=== PATIENT | male | born 1945 | race Caucasian/White ===

== ENCOUNTER 2017-03-28 11:25 | Emergency (ER) | payer MEDICARE ==
[2017-03-28 11:38] VITALS: BP 125/76
[2017-03-28] MEDS ORDERED: OXYCODONE-ACETAMINOPHEN 5-325 MG TABLET PO ONE (11:50)
[2017-03-28] MEDS ORDERED: KETOROLAC TROMETHAMINE INJ/PF 30 MG/1 ML SDV IV ONE (11:50)
[2017-03-28] MEDS ORDERED: ONDANSETRON HCL INJ/PF 4 MG/2 ML SDV IV ONE (11:51)
--- NOTE | 2017-03-28 11:53 | ER Document Report ---
ED Medical Screen (RME) - General Chief Complaint: Back Pain Stated Complaint: BACK PAIN Time Seen by Provider: 03/28/17 11:49 Notes: Patient is complaining of severe pain in his left lower thoracic back region for the past couple of days. He recalls no injury and has never had this pain before. He has had kidney stones previously. Patient says he passed some blood in urine during this week and felt he may be having another kidney stone. Has not had a cough or cold or chest congestion or shortness of breath, just pain when he takes a deep breath. Low-grade fever of 99.8. No history of any heart disease. TRAVEL OUTSIDE OF THE [place] IN LAST 30 DAYS: No - Related Data Allergies/Adverse Reactions: No Known Allergies Allergy (Verified 03/28/17 11:35) Past Medical History - Social History Chew tobacco use (# tins/day): No Frequency of alcohol use: Social Drug Abuse: None Endocrine Medical History: Reports: Hx Diabetes Mellitus Type 2 - borderline Renal/ Medical History: Reports: Hx Kidney Stones. Denies: Hx Peritoneal Dialysis Musculoskeltal Medical History: Reports Hx Arthritis - gout Psychiatric Medical History: Reports: Hx Depression Past Surgical History: Reports: Hx Orthopedic Surgery - Anterior cervical fusion , Hx Tonsillectomy - Immunizations Hx Diphtheria, Pertussis, Tetanus Vaccination: Yes Physical Exam - Vital signs Vitals: Temp Pulse Resp BP Pulse Ox 98.3 F 108 H 18 125/76 94 03/28/17 11:36 03/28/17 11:36 03/28/17 11:36 03/28/17 11:36 03/28/17 11:36 Course - Vital Signs Vital signs: Temp Pulse Resp BP Pulse Ox 98.3 F 108 H 16 125/76 94 03/28/17 11:36 03/28/17 11:36 03/28/17 11:40 03/28/17 11:36 03/28/17 11:36
[2017-03-28 12:31] LABS: ABSOLUTE BASOPHILS # (AUTO) 0.1 10^3/uL (0.0-0.2); ABSOLUTE EOSINOPHILS # (AUTO) 0.4 10^3/uL (0.0-0.6); ABSOLUTE LYMPHOCYTES (AUTO) 1.1 10^3/uL (0.5-4.7); ABSOLUTE MONOCYTES (AUTO) 1.1 10^3/uL (0.1-1.4); ABSOLUTE NEUT (AUTO) 8.5 10^3/uL (1.7-8.2); BASOPHILS % (AUTO) 0.7 % (0-2); EOSINOPHILS % (AUTO) 3.4 % (0-6); HEMATOCRIT 55.3 % (37.9-51.0); HEMOGLOBIN 18.2 g/dL (13.5-17.0); HGB HCT DIFFERENCE -0.7; LYMPHOCYTES % (AUTO) 9.6 % (13-45); MEAN CORPUSCULAR HGB CONC 32.8 g/dL (32.0-36.0); MEAN CORPUSCULAR VOLUME 91 fl (80-97); RED BLOOD COUNT 6.05 10^6/uL (4.35-5.55); RED CELL DISTRIBUTION WIDTH 14.6 % (11.5-14.0); SEGMENTED NEUTROPHILS % (AUTO) 76.3 % (42-78); WHITE BLOOD COUNT 11.2 10^3/uL (4.0-10.5)
[2017-03-28 12:35] LABS: APPEARANCE,URINE SLIGHTLY-CLOUDY; BILIRUBIN,URINE NEGATIVE (NEGATIVE); GLUCOSE, URINE NEGATIVE (NEGATIVE); KETONES,URINE NEGATIVE (NEGATIVE); LEUKOCYTE ESTERASE,URINE SMALL (NEGATIVE); NITRITE,URINE NEGATIVE (NEGATIVE); PROTEIN,URINE 30 mg/dL (NEGATIVE); URINE SPECIFIC GRAVITY 1.011; UROBILINOGEN,URINE NEGATIVE mg/dL (<2.0)
[2017-03-28 12:55] LABS: ALANINE AMINOTRANSFERASE 20 U/L (21-72); ALBUMIN 4.7 g/dL (3.5-5.0); ALKALINE PHOSPHATASE 174 U/L (38-126); ANION GAP 16 (5-19); ASPARTATE AMINO TRANSFERASE 18 U/L (17-59); BILIRUBIN,DIRECT 0.3 mg/dL (0.0-0.4); BLOOD UREA NITROGEN 13 mg/dL (7-20); CALCIUM 9.8 mg/dL (8.4-10.2); CARBON DIOXIDE 24 mmol/L (22-30); CHLORIDE 104 mmol/L (98-107); CREATININE RESULT 1.09 mg/dL (0.52-1.25); GLUCOSE 108 mg/dL (75-110); LIPASE 197.3 U/L (23-300); POTASSIUM 4.7 mmol/L (3.6-5.0); SODIUM 143.9 mmol/L (137-145); TOTAL PROTEIN 7.9 g/dL (6.3-8.2)
--- NOTE | 2017-03-28 13:10 | RADIOLOGY REPORT (SQ) ---
EXAM DESCRIPTION: CT LTD RENAL STONE PROTOCOL ON COMPLETED DATE/TIME: 03/28/2017 12:44 pm REASON FOR STUDY: Severe left flank pain, blood in urine, HX stones COMPARISON: None. TECHNIQUE: CT scan of the abdomen and pelvis performed without intravenous or oral contrast. Images reviewed with lung, soft tissue, and bone windows. Reconstructed coronal and sagittal MPR images revi ewed. All images stored on PACS. All CT scanners at this facility use dose modulation, iterative reconstruction, and/or weight based d osing when appropriate to reduce radiation dose to as low as reasonably achievable (ALARA). [facility]: Dose Right [facility]: CareDose [facility]: Dose Right [facility]: Teradose 4D [facility]: [employer] RADIATION DOSE: 8.72mGy. LIMITATIONS: None. FINDINGS: LOWER CHEST: Patchy bibasilar ground-glass infiltrates, acuity indeterminate. Trace pleur al fluid. NON-CONTRASTED LIVER, SPLEEN, ADRENALS: Liver and spleen unremarkable. Calcification in the left adr enal gland. Adrenals otherwise normal. PANCREAS: No masses. No peripancreatic inflammatory changes. GALLBLADDER: At least 1 small calcified gallstone. Otherwise normal. RIGHT KIDNEY AND URETER: Several small nonobstructing stones. No hydronephrosis. No ureteral stones . No gross mass. LEFT KIDNEY AND URETER: Tiny nonobstructing stones. Small cysts. Minimal dilatation of the collecti ng system with slight dilatation throughout the ureter. This is due to a 3 mm stone lodged at the UV J. Mild regional stranding along the ureter and left lower retroperitoneum. 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 BOWEL AND PERITONEAL CAVITY: No obvious masses or inflammatory changes. No free fluid. APPENDIX: Projects to the right upper quadrant adjacent to the liver. Normal as assessed. PELVIS, BLADDER, AND ABDOMINAL WALL:As above. Unremarkable pelvis otherwise. No hernia. BONES: Bone island in the L4 vertebra. Spondylosis at L5-S1. OTHER: No other significant finding. IMPRESSION: 1. Mild left hydronephrosis due to a 3 mm left ureterovesicular junction stone. TECHNICAL DOCUMENTATION: JOB ID: [id number] Quality ID # [id number]: Final reports with documentation of one or more dose reduction techniques (e.g., Au tomated exposure control, adjustment of the mA and/or kV according to patient size, use of iterative reconstruction technique) 2011 [employer]- All Rights Reserved
[2017-03-28] MEDS ORDERED: TAMSULOSIN HCL 0.4 MG CAP.SR.24H PO ONE (13:21)
--- NOTE | 2017-03-28 13:23 | ER Document Report ---
ED GI/ - General Chief Complaint: Back Pain Stated Complaint: BACK PAIN Time Seen by Provider: 03/28/17 11:49 Mode of Arrival: Ambulatory Information source: Patient TRAVEL OUTSIDE OF THE [place] IN LAST 30 DAYS: No - HPI Patient complains to provider of: Flank pain, Hematuria Onset: Other - 2 days Timing/Duration: Intermittent Quality of pain: Sharp, Stabbing Severity at maximum: Severe Severity in ED: Moderate Location: Left flank Associated symptoms: Hematuria, Nausea Exacerbated by: Denies Relieved by: Denies Similar symptoms previously: Yes Recently seen / treated by doctor: No Notes: 03/28/17 13:40 Patient is a 71-year-old male who presents to the emergency room complaining of 2 day history of left flank pain with hematuria, as well as nausea, no fevers, no vomiting, no diarrhea, no sick contacts, has a history of kidney stones in the past, states it hurts when he takes a deep breath at time - Related Data Allergies/Adverse Reactions: No Known Allergies Allergy (Verified 03/28/17 11:35) Past Medical History - General Information source: Patient - Social History Smoking Status: Current Every Day Smoker Chew tobacco use (# tins/day): No Frequency of alcohol use: Social Drug Abuse: None Family History: Reviewed & Not Pertinent Patient has suicidal ideation: No Patient has homicidal ideation: No Endocrine Medical History: Reports: Hx Diabetes Mellitus Type 2 - borderline Renal/ Medical History: Reports: Hx Kidney Stones. Denies: Hx Peritoneal Dialysis Musculoskeltal Medical History: Reports Hx Arthritis - gout Psychiatric Medical History: Reports: Hx Depression Past Surgical History: Reports: Hx Orthopedic Surgery - Anterior cervical fusion , Hx Tonsillectomy - Immunizations Hx Diphtheria, Pertussis, Tetanus Vaccination: Yes Hx Pneumococcal Vaccination: 07/10/10 Review of Systems - Review of Systems Constitutional: No symptoms reported EENT: No symptoms reported Cardiovascular: No symptoms reported Respiratory: No symptoms reported Gastrointestinal: No symptoms reported Genitourinary: See HPI Male Genitourinary: No symptoms reported Musculoskeletal: No symptoms reported Skin: No symptoms reported Hematologic/Lymphatic: No symptoms reported Neurological/Psychological: No symptoms reported -: Yes All other systems reviewed and negative Physical Exam - Vital signs Vitals: Temp Pulse Resp BP Pulse Ox 98.3 F 108 H 18 125/76 94 03/28/17 11:36 03/28/17 11:36 03/28/17 11:36 03/28/17 11:36 03/28/17 11:36 Interpretation: Normal - General General appearance: Appears well, Alert - HEENT Head: Normocephalic, Atraumatic Eyes: Normal Pupils: PERRL - Respiratory Respiratory status: No respiratory distress Chest status: Nontender Breath sounds: Normal Chest palpation: Normal - Cardiovascular Rhythm: Regular Heart sounds: Normal auscultation Murmur: No - Abdominal Inspection: Normal Distension: No distension Bowel sounds: Normal Tenderness: Nontender Organomegaly: No organomegaly - Back Back: Normal, CVA tenderness - Left side - Extremities General upper extremity: Normal inspection, Nontender, Normal color, Normal ROM , Normal temperature General lower extremity: Normal inspection, Nontender, Normal color, Normal ROM , Normal temperature, Normal weight bearing. No: John's sign - Neurological Neuro grossly intact: Yes Cognition: Normal Orientation: AAOx4 Janice Coma Scale Eye Opening: Spontaneous [place] Coma Scale Verbal: Oriented [place] Coma Scale Motor: Obeys Commands Janice Coma Scale Total: 15 Speech: Normal Motor strength normal: LUE, RUE, LLE, RLE Sensory: Normal - Psychological Associated symptoms: Normal affect, Normal mood - Skin Skin Temperature: Warm Skin Moisture: Dry Skin Color: Normal Course - Re-evaluation Re-evalutation: 03/28/17 13:41 Patient symptoms are consistent with nephrolithiasis, CT scan confirms a 3 mm stone at the left UVJ, he was started on medications for this as well as antibiotics his urine had WBCs and leukocyte esterase, advised to follow-up with a primary care provider or urologist or return to the emergency room if symptoms worsen, patient and at bedside acknowledge understanding and agreement with this plan - Vital Signs Vital signs: Temp Pulse Resp BP Pulse Ox 98.3 F 108 H 16 125/76 94 03/28/17 11:36 03/28/17 11:36 03/28/17 11:40 03/28/17 11:36 03/28/17 11:36 - Laboratory Result Diagrams: 03/28/17 12:10 03/28/17 12:10 Laboratory results interpreted by me: 03/28/17 03/28/17 03/28/17 12:10 12:10 12:10 WBC 11.2 H RBC 6.05 H Hgb 18.2 H Hct 55.3 H RDW 14.6 H Lymphocytes % 9.6 L Absolute Neutrophils 8.5 H ALT 20 L Alkaline Phosphatase 174 H Urine Protein 30 H Urine Blood MODERATE H Ur Leukocyte Esterase SMALL H Discharge - Discharge Clinical Impression: Ureterolithiasis Condition: Stable Disposition: HOME, SELF-CARE Instructions: Oral Narcotic Medication ([facility]), Kidney Stone ([facility]) Additional Instructions: Follow up with your primary care provider in one to 2 days. Return to the emergency room immediately if symptoms worsen or any additional concerns. Prescriptions: Cephalexin Monohydrate [Keflex 500 mg Capsule] 500 mg PO BID #20 capsule Ondansetron [Zofran Odt 4 mg Tablet] 1 - 2 tab PO Q4H #10 tab.rapdis Oxycodone HCl/Acetaminophen [Percocet 5-325 mg Tablet] 1 - 2 tab PO ASDIR PRN # 15 tablet PRN Reason: Tamsulosin HCl [Flomax 0.4 mg Cap.sr] 0.4 mg PO DAILY #7 cap.sr.24h
== END 2017-03-28 13:45 | disposition home or self-care (01) ==
LOC: ER 11:25
DX: N20.1 Calculus of ureter (principal); R10.9 Unspecified abdominal pain; R31.9 Hematuria, unspecified; F17.200 Nicotine dependence, unspecified, uncomplicated; E11.9 Type 2 diabetes mellitus without complications; Z87.442 Personal history of urinary calculi; Z98.1 Arthrodesis status
CPT/HCPCS: 99284; 96374; 96375; 36415; 83690; 85025; 80053; 81001; 76380; J1885; A9270 ×2; J2405

== ENCOUNTER 2017-03-31 11:00 | Emergency (ER) | payer MEDICARE ==
--- NOTE | 2017-03-31 11:23 | ER Document Report ---
ED Medical Screen (RME) - General Chief Complaint: Flank Pain Stated Complaint: LEFT FLANK PAIN Time Seen by Provider: 03/31/17 11:16 Notes: Patient is a 71-year-old male who presents with worsening left flank pain. He was diagnosed with a 3 mm stone 3 days ago. He is taking Percocet, Flomax and Keflex, but he is still having worsening pain. He has not filled his Zofran prescription because he is not nauseous. Today, began to have a cough and noticed a small amount of blood-tinged sputum. Denies numbness, tingling, dysuria, chest pain, shortness of breath, nausea or vomiting. PE: Uncomfortable. No CVA tenderness. Lungs CTAB. Tachycardic. I have greeted and performed a rapid initial assessment of this patient. A comprehensive ED assessment and evaluation of the patient, analysis of test results and completion of the medical decision making process will be conducted by additional ED providers. TRAVEL OUTSIDE OF THE [place] IN LAST 30 DAYS: No - Related Data Allergies/Adverse Reactions: No Known Allergies Allergy (Verified 03/28/17 11:35) Past Medical History Endocrine Medical History: Reports: Hx Diabetes Mellitus Type 2 - borderline Renal/ Medical History: Reports: Hx Kidney Stones. Denies: Hx Peritoneal Dialysis Musculoskeltal Medical History: Reports Hx Arthritis - gout Psychiatric Medical History: Reports: Hx Depression Past Surgical History: Reports: Hx Orthopedic Surgery - Anterior cervical fusion , Hx Tonsillectomy - Immunizations Hx Diphtheria, Pertussis, Tetanus Vaccination: Yes Physical Exam - Vital signs Vitals: Temp Pulse Resp BP Pulse Ox 97.8 F 103 H 16 141/84 H 95 03/31/17 11:03/31/17 11:04 03/31/17 11:03/31/17 11:04 03/31/17 11:04 Course - Vital Signs Vital signs: Temp Pulse Resp BP Pulse Ox 97.8 F 103 H 16 141/84 H 95 03/31/17 11:04 03/31/17 11:04 03/31/17 11:04 03/31/17 11:04 03/31/17 11:04
[2017-03-31] MEDS ORDERED: NAPROXEN 250 MG TABLET PO ONE (11:24)
[2017-03-31] MEDS ORDERED: OXYCODONE-ACETAMINOPHEN 5-325 MG TABLET PO ONE (11:24)
[2017-03-31 12:02] LABS: ABSOLUTE BASOPHILS # (AUTO) 0.1 10^3/uL (0.0-0.2); ABSOLUTE EOSINOPHILS # (AUTO) 0.4 10^3/uL (0.0-0.6); ABSOLUTE LYMPHOCYTES (AUTO) 1.3 10^3/uL (0.5-4.7); ABSOLUTE MONOCYTES (AUTO) 0.7 10^3/uL (0.1-1.4); BASOPHILS % (AUTO) 0.8 % (0-2); EOSINOPHILS % (AUTO) 5.2 % (0-6); HEMATOCRIT 53.1 % (37.9-51.0); HEMOGLOBIN 17.6 g/dL (13.5-17.0); HGB HCT DIFFERENCE -0.3; LYMPHOCYTES % (AUTO) 15.1 % (13-45); MEAN CORPUSCULAR HEMOGLOBIN 30.3 pg (27.0-33.4); MEAN CORPUSCULAR HGB CONC 33.1 g/dL (32.0-36.0); MEAN CORPUSCULAR VOLUME 92 fl (80-97); MONOCYTES % (AUTO) 8.2 % (3-13); RED CELL DISTRIBUTION WIDTH 14.3 % (11.5-14.0); SEGMENTED NEUTROPHILS % (AUTO) 70.7 % (42-78); WHITE BLOOD COUNT 8.5 10^3/uL (4.0-10.5)
--- NOTE | 2017-03-31 12:03 | RADIOLOGY REPORT (SQ) ---
EXAM DESCRIPTION: CHEST PA/LAT COMPLETED DATE/TIME: 03/31/2017 11:45 am REASON FOR STUDY: cough COMPARISON: 03/10/2016. TECHNIQUE: Frontal and lateral radiographic views of the chest acquired. NUMBER OF VIEWS: Two view. LIMITATIONS: None. FINDINGS: LUNGS AND PLEURA: Bibasilar opacities, largely linear subsegmental atelectasis. Lateral v iew suggests minimal density over the lower thoracic spine suggesting pneumonia in 1 of the lower lob es. No fluid. No pneumothorax. No nodules. MEDIASTINUM AND HILAR STRUCTURES: Stable. Uncoiled aorta. HEART AND VASCULAR STRUCTURES: Heart normal size. No evidence for failure. BONES: No acute findings. HARDWARE: None in the chest. OTHER: No other significant finding. IMPRESSION: Suspect basilar subsegmental atelectasis and pneumonia. TECHNICAL DOCUMENTATION: JOB ID: [id number] [employer]- All Rights Reserved
[2017-03-31 12:06] LABS: ALANINE AMINOTRANSFERASE 25 U/L (21-72); ALBUMIN 4.6 g/dL (3.5-5.0); ALKALINE PHOSPHATASE 151 U/L (38-126); ANION GAP 15 (5-19); ASPARTATE AMINO TRANSFERASE 16 U/L (17-59); BILIRUBIN,DIRECT 0.4 mg/dL (0.0-0.4); BILIRUBIN,TOTAL 0.7 mg/dL (0.2-1.3); BLOOD UREA NITROGEN 15 mg/dL (7-20); CALCIUM 9.8 mg/dL (8.4-10.2); CARBON DIOXIDE 28 mmol/L (22-30); CHLORIDE 103 mmol/L (98-107); CREATININE RESULT 1.03 mg/dL (0.52-1.25); GLUCOSE 106 mg/dL (75-110); LIPASE 111.9 U/L (23-300); POTASSIUM 4.3 mmol/L (3.6-5.0); SODIUM 145.5 mmol/L (137-145); TOTAL PROTEIN 7.9 g/dL (6.3-8.2)
[2017-03-31 12:11] LABS: APPEARANCE,URINE CLEAR; BILIRUBIN,URINE NEGATIVE (NEGATIVE); GLUCOSE, URINE NEGATIVE (NEGATIVE); KETONES,URINE NEGATIVE (NEGATIVE); LEUKOCYTE ESTERASE,URINE NEGATIVE (NEGATIVE); NITRITE,URINE NEGATIVE (NEGATIVE); PROTEIN,URINE NEGATIVE (NEGATIVE); URINE SPECIFIC GRAVITY 1.014; UROBILINOGEN,URINE NEGATIVE mg/dL (<2.0)
[2017-03-31] MEDS ORDERED: CEFTRIAXONE INJ 1000 MG VIAL IM ONE (13:11)
[2017-03-31] MEDS ORDERED: LIDOCAINE 1% INJ-PF (10 MG/ML) 30 ML SDV INFIL ONE (13:11)
[2017-03-31] MEDS ORDERED: AZITHROMYCIN 250 MG TABLET PO ONE (13:12)
--- NOTE | 2017-03-31 13:22 | ER Document Report ---
ED General - General Chief Complaint: Flank Pain Stated Complaint: LEFT FLANK PAIN Time Seen by Provider: 03/31/17 11:16 TRAVEL OUTSIDE OF THE [place] IN LAST 30 DAYS: No - HPI Patient complains to provider of: Flank pain Notes: Patient coming in for evaluation left flank pain. States ongoing for the last few days patient was recently diagnosed with a kidney stone. Patient states history of kidney stones patient also states that he is having some streaks of blood in his sputum. Denies any fevers chills nausea vomiting diarrhea patient is unaware if he has passed his recent kidney stone. Patient states pain similar to before - Related Data Allergies/Adverse Reactions: No Known Allergies Allergy (Verified 03/28/17 11:35) Past Medical History - Social History Smoking Status: Unknown if Ever Smoked Family History: Reviewed & Not Pertinent Patient has suicidal ideation: No Patient has homicidal ideation: No Endocrine Medical History: Reports: Hx Diabetes Mellitus Type 2 - borderline Renal/ Medical History: Reports: Hx Kidney Stones. Denies: Hx Peritoneal Dialysis Musculoskeltal Medical History: Reports Hx Arthritis - gout Psychiatric Medical History: Reports: Hx Depression Past Surgical History: Reports: Hx Orthopedic Surgery - Anterior cervical fusion , Hx Tonsillectomy - Immunizations Hx Diphtheria, Pertussis, Tetanus Vaccination: Yes Hx Pneumococcal Vaccination: 07/10/10 Review of Systems - Review of Systems Constitutional: No symptoms reported EENT: No symptoms reported Cardiovascular: No symptoms reported Respiratory: Cough Gastrointestinal: No symptoms reported Genitourinary: Flank pain Male Genitourinary: No symptoms reported Musculoskeletal: No symptoms reported Skin: No symptoms reported Hematologic/Lymphatic: No symptoms reported Neurological/Psychological: No symptoms reported Physical Exam - Vital signs Vitals: Temp Pulse Resp BP Pulse Ox 97.8 F 103 H 16 141/84 H 95 03/31/17 11:04 03/31/17 11:04 03/31/17 11:04 03/31/17 11:04 03/31/17 11:04 Interpretation: Normal - General General appearance: Appears well, Alert - HEENT Head: Normocephalic, Atraumatic Eyes: Normal Pupils: PERRL - Respiratory Respiratory status: No respiratory distress Chest status: Nontender Breath sounds: Normal Chest palpation: Normal - Cardiovascular Rhythm: Regular Heart sounds: Normal auscultation Murmur: No - Abdominal Inspection: Normal Distension: No distension Bowel sounds: Normal Tenderness: Nontender Organomegaly: No organomegaly - Back Back: Normal, Nontender - Extremities General upper extremity: Normal inspection, Nontender, Normal color, Normal ROM , Normal temperature General lower extremity: Normal inspection, Nontender, Normal color, Normal ROM , Normal temperature, Normal weight bearing. No: John's sign - Neurological Neuro grossly intact: Yes Cognition: Normal Orientation: AAOx4 [place] Coma Scale Eye Opening: Spontaneous [place] Coma Scale Verbal: Oriented Janice Coma Scale Motor: Obeys Commands Janice Coma Scale Total: 15 Speech: Normal Motor strength normal: LUE, RUE, LLE, RLE Sensory: Normal - Psychological Associated symptoms: Normal affect, Normal mood - Skin Skin Temperature: Warm Skin Moisture: Dry Skin Color: Normal Course - Re-evaluation Re-evalutation: 03/31/17 15:22 Chest x-ray showed a developing pneumonia which was actually seen in the patient 's renal scan however was not placed in the impression: Patient was seen 4 days ago for a kidney stone. Patient is on Keflex. Patient will be given a dose of Rocephin and sent home on azithromycin that is noted on signs of respiratory distress at this time no fever no signs of septicemia. Patient is urinalysis does show some signs of blood recommended possible repeat CAT scan for further evaluation patient declines states that he would leave this time after receiving antibiotics follow-up with his primary care physician. - Vital Signs Vital signs: Temp Pulse Resp BP Pulse Ox 97.8 F 80 18 122/88 H 100 03/31/17 13:46 03/31/17 13:46 03/31/17 13:46 03/31/17 13:46 03/31/17 13:46 - Laboratory Result Diagrams: 03/31/17 11:35 03/31/17 11:35 Laboratory results interpreted by me: 03/31/17 03/31/17 03/31/17 11:35 11:35 11:35 RBC 5.80 H Hgb 17.6 H Hct 53.1 H RDW 14.3 H Sodium 145.5 H AST 16 L Alkaline Phosphatase 151 H Urine Blood SMALL H Discharge - Discharge Clinical Impression: Ureterolithiasis Pneumonia Qualifiers: Aspiration pneumonia type: unspecified Laterality: left Lung location: lower lobe of lung Condition: Good Disposition: HOME, SELF-CARE Instructions: Pneumonia ([facility]), Kidney Stone ([facility]) Additional Instructions: Your chest x-ray today shows a pneumonia in the lower lobes of your lungs more likely causing her pain today. We will give you a shot of antibiotic Rocephin and start you on antibiotic on Zithromax. Continue to take your Flomax your pain medication nausea medication as previously prescribed please follow-up with your doctor tomorrow. Prescriptions: Ondansetron [Zofran Odt 4 mg Tablet] 4 mg PO Q4HP PRN #30 tab.rapdis PRN Reason: Azithromycin [Zithromax 250 mg Tablet] 250 mg PO DAILY #5 tablet Oxycodone HCl/Acetaminophen [Percocet 5-325 mg Tablet] 1 - 2 tab PO Q4H PRN #25 tablet PRN Reason: Tamsulosin HCl [Flomax 0.4 mg Cap.sr] 0.4 mg PO DAILY #7 cap.sr.24h Referrals: KING CEE MD [Primary Care Provider] - Follow up as needed
[2017-03-31 13:47] VITALS: BP 122/88
== END 2017-03-31 13:50 | disposition home or self-care (01) ==
LOC: ER 11:00
DX: N20.1 Calculus of ureter (principal); J18.9 Pneumonia, unspecified organism; R04.2 Hemoptysis
CPT/HCPCS: 99284; 96372; 36415; 83690; 85025; 80053; 81001; 71020; A9270 ×3; J3490; J0696

== ENCOUNTER 2017-04-10 15:31 | Emergency (ER) | payer MEDICARE ==
--- NOTE | 2017-04-10 15:48 | ER Document Report ---
ED Medical Screen (RME) - General Chief Complaint: Cough Stated Complaint: FLANK PAIN, DIFFICULTY BREATHING Time Seen by Provider: 04/10/17 15:44 Mode of Arrival: Ambulatory Information source: Patient TRAVEL OUTSIDE OF THE [place] IN LAST 30 DAYS: No - HPI Patient complains to provider of: cough/bloody sputum Onset: Other - Pt states he recently passed 3 kidney stones -- feels better now. Has been coughing up blood for the past several days. Smokes 1/2 ppd - Related Data Allergies/Adverse Reactions: No Known Allergies Allergy (Verified 03/28/17 11:35) Past Medical History Endocrine Medical History: Reports: Hx Diabetes Mellitus Type 2 - borderline Renal/ Medical History: Reports: Hx Kidney Stones. Denies: Hx Peritoneal Dialysis Musculoskeltal Medical History: Reports Hx Arthritis - gout Psychiatric Medical History: Reports: Hx Depression Past Surgical History: Reports: Hx Orthopedic Surgery - Anterior cervical fusion , Hx Tonsillectomy - Immunizations Hx Diphtheria, Pertussis, Tetanus Vaccination: Yes Physical Exam - Vital signs Vitals: Temp Pulse Resp BP Pulse Ox 98.1 F 103 H 18 117/91 H 97 04/10/17 15:36 04/10/17 15:36 04/10/17 15:36 04/10/17 15:36 04/10/17 15:36 Course - Vital Signs Vital signs: Temp Pulse Resp BP Pulse Ox 98.1 F 103 H 18 117/91 H 97 04/10/17 15:36 04/10/17 15:36 04/10/17 15:36 04/10/17 15:36 04/10/17 15:36
[2017-04-10 16:17] LABS: ABSOLUTE BASOPHILS # (AUTO) 0.1 10^3/uL (0.0-0.2); ABSOLUTE EOSINOPHILS # (AUTO) 0.6 10^3/uL (0.0-0.6); ABSOLUTE MONOCYTES (AUTO) 0.8 10^3/uL (0.1-1.4); BASOPHILS % (AUTO) 1.2 % (0-2); EOSINOPHILS % (AUTO) 6.7 % (0-6); HEMATOCRIT 53.3 % (37.9-51.0); HEMOGLOBIN 16.9 g/dL (13.5-17.0); HGB HCT DIFFERENCE -2.6; LYMPHOCYTES % (AUTO) 23.8 % (13-45); MEAN CORPUSCULAR HEMOGLOBIN 29.1 pg (27.0-33.4); MEAN CORPUSCULAR HGB CONC 31.6 g/dL (32.0-36.0); MEAN CORPUSCULAR VOLUME 92 fl (80-97); MONOCYTES % (AUTO) 9.5 % (3-13); RED CELL DISTRIBUTION WIDTH 14.6 % (11.5-14.0); SEGMENTED NEUTROPHILS % (AUTO) 58.8 % (42-78); WHITE BLOOD COUNT 8.5 10^3/uL (4.0-10.5)
--- NOTE | 2017-04-10 16:21 | RADIOLOGY REPORT (SQ) ---
EXAM DESCRIPTION: CHEST PA/LAT COMPLETED DATE/TIME: 04/10/2017 4:02 pm REASON FOR STUDY: hemoptysis COMPARISON: 03/31/2017 EXAM PARAMETERS: NUMBER OF VIEWS: two views TECHNIQUE: Digital Frontal and Lateral radiographic views of the chest acquired. RADIATION DOSE: NA LIMITATIONS: none FINDINGS: LUNGS AND PLEURA: No opacities, masses or pneumothorax. No pleural effusion. MEDIASTINUM AND HILAR STRUCTURES: No masses or contour abnormalities. HEART AND VASCULAR STRUCTURES: Heart normal size. No evidence for failure. BONES: No acute findings. HARDWARE: None in the chest. OTHER: No other significant finding. IMPRESSION: NO SIGNIFICANT RADIOGRAPHIC FINDING IN THE CHEST. TECHNICAL DOCUMENTATION: JOB ID: [id number] [employer]- All Rights Reserved
[2017-04-10 16:25] LABS: APPEARANCE,URINE CLEAR; BILIRUBIN,URINE NEGATIVE (NEGATIVE); GLUCOSE, URINE NEGATIVE (NEGATIVE); KETONES,URINE NEGATIVE (NEGATIVE); LEUKOCYTE ESTERASE,URINE SMALL (NEGATIVE); NITRITE,URINE NEGATIVE (NEGATIVE); PROTEIN,URINE NEGATIVE (NEGATIVE); URINE SPECIFIC GRAVITY 1.016; UROBILINOGEN,URINE NEGATIVE mg/dL (<2.0)
[2017-04-10 16:28] LABS: ALANINE AMINOTRANSFERASE 42 U/L (21-72); ALBUMIN 4.6 g/dL (3.5-5.0); ALKALINE PHOSPHATASE 164 U/L (38-126); ANION GAP 14 (5-19); ASPARTATE AMINO TRANSFERASE 17 U/L (17-59); BILIRUBIN,DIRECT 0.4 mg/dL (0.0-0.4); BILIRUBIN,TOTAL 0.6 mg/dL (0.2-1.3); BLOOD UREA NITROGEN 20 mg/dL (7-20); CALCIUM 9.4 mg/dL (8.4-10.2); CARBON DIOXIDE 25 mmol/L (22-30); CHLORIDE 105 mmol/L (98-107); CREATININE RESULT 1.02 mg/dL (0.52-1.25); GLUCOSE 84 mg/dL (75-110); POTASSIUM 4.8 mmol/L (3.6-5.0); SODIUM 144.3 mmol/L (137-145); TOTAL PROTEIN 7.6 g/dL (6.3-8.2)
--- NOTE | 2017-04-10 17:19 | ER Document Report ---
ED GI/ - General Chief Complaint: Cough Stated Complaint: FLANK PAIN, DIFFICULTY BREATHING Time Seen by Provider: 04/10/17 15:44 Mode of Arrival: Ambulatory Information source: Patient Notes: Patient is a 71-year-old male who presents to the ER today4 coughing up streaks of blood after recovering from pneumonia. Patient does smoke half a pack per day of cigarettes. He states that he is no longer having any pain, and the cough is still there though and he only coughs up small streaks of blood occasionally. He has never done this before, has not been out of the country. He denies any fevers or chills. States that the pneumonia actually got much better. TRAVEL OUTSIDE OF THE [place] IN LAST 30 DAYS: No - Related Data Allergies/Adverse Reactions: No Known Allergies Allergy (Verified 03/28/17 11:35) Past Medical History - General Information source: Patient - Social History Smoking Status: Current Every Day Smoker Chew tobacco use (# tins/day): No Frequency of alcohol use: Social Drug Abuse: None Family History: Reviewed & Not Pertinent Patient has suicidal ideation: No Patient has homicidal ideation: No Endocrine Medical History: Reports: Hx Diabetes Mellitus Type 2 - borderline Renal/ Medical History: Reports: Hx Kidney Stones. Denies: Hx Peritoneal Dialysis Musculoskeltal Medical History: Reports Hx Arthritis - gout Psychiatric Medical History: Reports: Hx Depression Past Surgical History: Reports: Hx Orthopedic Surgery - Anterior cervical fusion , Hx Tonsillectomy - Immunizations Hx Diphtheria, Pertussis, Tetanus Vaccination: Yes Hx Pneumococcal Vaccination: 07/10/10 Review of Systems - Review of Systems Constitutional: No symptoms reported EENT: No symptoms reported Cardiovascular: No symptoms reported Respiratory: See HPI Gastrointestinal: No symptoms reported Genitourinary: No symptoms reported Male Genitourinary: No symptoms reported Musculoskeletal: No symptoms reported Skin: No symptoms reported Hematologic/Lymphatic: No symptoms reported Neurological/Psychological: No symptoms reported Physical Exam - Vital signs Vitals: Temp Pulse Resp BP Pulse Ox 98.1 F 103 H 18 117/91 H 97 04/10/17 15:36 04/10/17 15:36 04/10/17 15:36 04/10/17 15:36 04/10/17 15:36 - Notes Notes: PHYSICAL EXAMINATION: GENERAL: Well-appearing and in no acute distress. HEAD: Atraumatic, normocephalic. EYES: Pupils equal round and reactive to light, extraocular movements intact, sclera anicteric, conjunctiva are normal. ENT: ear canals without erythema or foreign body, TMs pearly fernandez with good bony landmarks, nares patent, oropharynx clear without exudates. Moist mucous membranes. NECK: Normal range of motion, supple without lymphadenopathy LUNGS: Cough, otherwise CTAB and equal. No wheezes rales or rhonchi. HEART: Regular rate and rhythm without murmurs ABDOMEN: Soft, no tenderness. No guarding, no rebound BACK: no vertebral tenderness, normal ROM GI/: no CVA tenderness EXTREMITIES: Normal range of motion, no pitting edema. No cyanosis. NEUROLOGICAL: Cranial nerves grossly intact. Normal sensory/motor exams. PSYCH: Normal mood, normal affect. SKIN: Warm, Dry, normal turgor, no rashes or lesions noted Course - Re-evaluation Re-evalutation: 04/10/17 17:18 Chest x-ray normal today without any evidence of pneumonia or any opacities at all, lab work unremarkable today. Patient will go home with cough medication. I did not see streaks of blood when he coughs today. - Vital Signs Vital signs: Temp Pulse Resp BP Pulse Ox 98.1 F 103 H 18 117/91 H 97 04/10/17 15:36 04/10/17 15:36 04/10/17 15:36 04/10/17 15:36 04/10/17 15:36 - Laboratory Result Diagrams: 04/10/17 15:55 04/10/17 15:55 Laboratory results interpreted by me: 04/10/17 04/10/17 04/10/17 15:50 15:55 15:55 RBC 5.80 H Hct 53.3 H MCHC 31.6 L RDW 14.6 H Eosinophils % 6.7 H Alkaline Phosphatase 164 H Ur Leukocyte Esterase SMALL H Discharge - Discharge Clinical Impression: Cough Condition: Stable Disposition: HOME, SELF-CARE Additional Instructions: Return immediately for any new or worsening symptoms. Follow up with primary care provider, call tomorrow to make followup appointment. Prescriptions: Hydrocodone Bit/Homatropine [Hycodan Syrup 5-1.5 mg/5 ml Ud Cup] 5 ml PO Q4HP PRN #120 ml PRN Reason:
[2017-04-10 17:33] VITALS: BP 117/79
== END 2017-04-10 17:34 | disposition home or self-care (01) ==
LOC: ER 15:31
DX: R05 Cough (principal); R06.00 Dyspnea, unspecified; F17.200 Nicotine dependence, unspecified, uncomplicated; R73.03 Prediabetes; Z87.442 Personal history of urinary calculi; Z98.1 Arthrodesis status
CPT/HCPCS: 36415; 71020; 80053; 81001; 85025; 99284

== ENCOUNTER 2017-08-07 06:38 | Observation (INO) | payer MEDICARE ==
[2017-08-07] MEDS ORDERED: NORMAL SALINE 1000 ML 1,000 ML IV ONE (07:31)
[2017-08-07] MEDS ORDERED: NORMAL SALINE 500 ML IV ONE (07:31)
--- NOTE | 2017-08-07 07:38 | ER Document Report ---
ED General - General Chief Complaint: Productive Cough Stated Complaint: COUGHING UP BLOOD Time Seen by Provider: 08/07/17 07:16 TRAVEL OUTSIDE OF THE [place] IN LAST 30 DAYS: No - HPI Patient complains to provider of: Hemoptysis Notes: Patient coming in for approximately 10 day history of hemoptysis. Patient was recently seen with chest x-ray performed showing no signs of any acute pathology was diagnosed with pneumonia started on Z-Reed. Patient states has taken all his medication however no improvement of his symptoms. Patient does have significant smoking history. Patient also states in the last few weeks has lost approximately 10 pounds. Otherwise denies any fevers states night sweats and chills no chest pain no abdominal pain no nausea no vomiting - Related Data Allergies/Adverse Reactions: No Known Allergies Allergy (Verified 03/28/17 11:35) Home Medications: Current Home Medications Allopurinol [Zyloprim 100 mg Tablet] 100 mg PO DAILY 08/07/17 [History] Aspirin [Aspirin EC] 81 mg PO DAILY 08/07/17 [History] Colchicine [Colchicine 0.6 mg Tablet] 0.6 mg PO DAILYP PRN 08/07/17 [History] Gemfibrozil [Lopid] 1,200 mg PO DAILY 08/07/17 [History] Ipratropium [place] [Atrovent Hfa] 1 puff IH Q6HP PRN 08/07/17 [History] Levothyroxine Sodium [Synthroid 0.075 mg Tablet] 75 mcg PO DAILY 08/07/17 [ History] Metformin HCl [Metformin HCl ER] 1,000 mg PO DAILY 08/07/17 [History] Multivitamin [Daily Multiple Vitamin] 1 tab PO DAILY 08/07/17 [History] [place]-3 Fatty Acids/Fish Oil [Fish Oil 1,000 mg Capsule] 2,000 mg PO DAILY 08/07 [History] Oxycodone HCl/Acetaminophen [Oxycodon-Acetaminophen 7.5-325] 1 tab PO Q8HP PRN 08/07/17 [History] Potassium Citrate Cr Tablet 2,160 mg PO DAILY 08/07/17 [History] Sertraline HCl [Zoloft 50 mg Tablet] 100 mg PO DAILY 08/07/17 [History] Triamcinolone Acetonide [Triderm] 1 applic TOP QIDP PRN 08/07/17 [History] Past Medical History - Social History Smoking Status: Unknown if Ever Smoked Family History: Reviewed & Not Pertinent Patient has suicidal ideation: No Patient has homicidal ideation: No Pulmonary Medical History: Reports: Hx Asthma Endocrine Medical History: Reports: Hx Diabetes Mellitus Type 2 - borderline Renal/ Medical History: Reports: Hx Kidney Stones. Denies: Hx Peritoneal Dialysis Musculoskeltal Medical History: Reports Hx Arthritis - gout, Reports Hx Gout Psychiatric Medical History: Reports: Hx Depression Past Surgical History: Reports: Hx Orthopedic Surgery - Anterior cervical fusion , Hx Tonsillectomy - Immunizations Hx Diphtheria, Pertussis, Tetanus Vaccination: Yes Hx Pneumococcal Vaccination: 07/10/10 Review of Systems - Review of Systems Constitutional: No symptoms reported EENT: No symptoms reported Cardiovascular: No symptoms reported Respiratory: Hemoptysis, Short of breath Gastrointestinal: No symptoms reported Genitourinary: No symptoms reported Male Genitourinary: No symptoms reported Musculoskeletal: No symptoms reported Skin: No symptoms reported Hematologic/Lymphatic: No symptoms reported Neurological/Psychological: No symptoms reported -: Yes All other systems reviewed and negative Physical Exam - Vital signs Vitals: Temp Pulse BP Pulse Ox 98.8 F 100 142/83 H 97 08/07/17 06:47 08/07/17 06:47 08/07/17 06:47 08/07/17 06:47 Interpretation: Normal - General General appearance: Appears well, Alert - HEENT Head: Normocephalic, Atraumatic Eyes: Normal Pupils: PERRL - Respiratory Respiratory status: No respiratory distress Chest status: Nontender Breath sounds: Normal Chest palpation: Normal - Cardiovascular Rhythm: Regular Heart sounds: Normal auscultation Murmur: No - Abdominal Inspection: Normal Distension: No distension Bowel sounds: Normal Tenderness: Nontender Organomegaly: No organomegaly - Back Back: Normal, Nontender - Extremities General upper extremity: Normal inspection, Nontender, Normal color, Normal ROM , Normal temperature General lower extremity: Normal inspection, Nontender, Normal color, Normal ROM , Normal temperature, Normal weight bearing. No: John's sign - Neurological Neuro grossly intact: Yes Cognition: Normal Orientation: AAOx4 Caro Coma Scale Eye Opening: Spontaneous Janice Coma Scale Verbal: Oriented Caro Coma Scale Motor: Obeys Commands Caro Coma Scale Total: 15 Speech: Normal Motor strength normal: LUE, RUE, LLE, RLE Sensory: Normal - Psychological Associated symptoms: Normal affect, Normal mood - Skin Skin Temperature: Warm Skin Moisture: Dry Skin Color: Normal Course - Re-evaluation Re-evalutation: 08/07/17 09:42 CT scan showed subacute PE with associated pulmonary infarction. No signs of pneumonia or malignancy. Patient's Pesi score placed the patient in the intermediate category for 30 day mortality. Discussed with hospitalist agrees with the patient at this time recommending Xarelto for anticoagulation. At this time discussed and reviewed results with the patient. Also discussed the risk and benefits of anticoagulation at this time. Patient agrees of anticoagulation is concerned about admission. Explained that It would be beneficial for the patient to stay in the hospital. - Vital Signs Vital signs: Temp Pulse Resp BP Pulse Ox 97.7 F 83 22 H 125/89 H 98 08/07/17 12:30 08/07/17 12:30 08/07/17 12:30 08/07/17 12:30 08/07/17 12:30 - Laboratory Result Diagrams: 08/07/17 07:33 08/07/17 07:33 Laboratory results interpreted by me: 08/07/17 08/07/17 07:33 07:33 Eosinophils % 6.8 H Sodium 146.8 H Glucose 111 H Alkaline Phosphatase 141 H Critical Care Note - Critical Care Note Total time excluding time spent on procedures (mins): 35 Comments: Multiple evaluation patient with hemoptysis managing patient with PE. Discharge - Discharge Clinical Impression: Pulmonary infarction, Hemoptysis Pulmonary embolism Qualifiers: Pulmonary embolism type: other Chronicity: acute Acute cor pulmonale presence: without acute cor pulmonale Qualified Code(s): I26.99 - Other pulmonary embolism without acute cor pulmonale Condition: Good Disposition: ADMITTED OBSERVATION Admitting Provider: Hospitalist - [facility] Admitted: Telemetry
[2017-08-07 07:50] LABS: ABSOLUTE BASOPHILS # (AUTO) 0.1 10^3/uL (0.0-0.2); ABSOLUTE EOSINOPHILS # (AUTO) 0.6 10^3/uL (0.0-0.6); ABSOLUTE MONOCYTES (AUTO) 0.8 10^3/uL (0.1-1.4); ABSOLUTE NEUT (AUTO) 5.2 10^3/uL (1.7-8.2); BASOPHILS % (AUTO) 1.4 % (0-2); EOSINOPHILS % (AUTO) 6.8 % (0-6); HEMATOCRIT 49.4 % (37.9-51.0); HEMOGLOBIN 16.7 g/dL (13.5-17.0); HGB HCT DIFFERENCE 0.7; LYMPHOCYTES % (AUTO) 23.1 % (13-45); MEAN CORPUSCULAR HEMOGLOBIN 30.4 pg (27.0-33.4); MEAN CORPUSCULAR HGB CONC 33.7 g/dL (32.0-36.0); MEAN CORPUSCULAR VOLUME 90 fl (80-97); MONOCYTES % (AUTO) 9.5 % (3-13); RED BLOOD COUNT 5.48 10^6/uL (4.35-5.55); SEGMENTED NEUTROPHILS % (AUTO) 59.2 % (42-78); WHITE BLOOD COUNT 8.8 10^3/uL (4.0-10.5)
[2017-08-07 07:53] LABS: VENOUS BLOOD BASE EXCESS 4.6 mmol/L; VENOUS BLOOD HCO3 31.6 mmol/L (20-32); VENOUS BLOOD PCO2 55.3 mmHg (35-63); VENOUS BLOOD PH 7.38 (7.30-7.42)
[2017-08-07 07:56] LABS: PROTHROMBIN TIME 13.5 SEC (11.4-15.4)
--- NOTE | 2017-08-07 08:00 | EKG REPORT ---
SEVERITY:- ABNORMAL ECG - SINUS RHYTHM RIGHT BUNDLE BRANCH BLOCK LAFB NONSPECIFIC ST-T CHANGES- INFERIOR LEADS : Confirmed by: Shaji Crawley MD 07-Aug-2017 08:00:17
[2017-08-07 08:54] LABS: ALANINE AMINOTRANSFERASE 35 U/L (21-72); ALBUMIN 4.2 g/dL (3.5-5.0); ALKALINE PHOSPHATASE 141 U/L (38-126); ANION GAP 15 (5-19); ASPARTATE AMINO TRANSFERASE 19 U/L (17-59); BILIRUBIN,DIRECT 0.4 mg/dL (0.0-0.4); BILIRUBIN,TOTAL 0.5 mg/dL (0.2-1.3); BLOOD UREA NITROGEN 20 mg/dL (7-20); CALCIUM 9.5 mg/dL (8.4-10.2); CARBON DIOXIDE 26 mmol/L (22-30); CHLORIDE 106 mmol/L (98-107); CREATININE RESULT 1.16 mg/dL (0.52-1.25); GLUCOSE 111 mg/dL (75-110); LIPASE 260.7 U/L (23-300); POTASSIUM 4.3 mmol/L (3.6-5.0); SODIUM 146.8 mmol/L (137-145); TOTAL PROTEIN 7.1 g/dL (6.3-8.2)
--- NOTE | 2017-08-07 09:06 | RADIOLOGY REPORT (SQ) ---
EXAM DESCRIPTION: CTA CHEST COMPLETED DATE/TIME: 08/07/2017 8:46 am REASON FOR STUDY: Hemoptysis coughing recent treatment pneumonia COMPARISON: CORRELATION MADE TO CT ABDOMEN FROM 03/28/2017 TECHNIQUE: CT scan of the chest performed using helical scanning technique with dynamic intravenous contrast injection. Images reviewed with lung, soft tissue and bone windows. Reconstructed coronal and sagittal MPR images reviewed. Additional 3 dimensional post-processing performed to develop Maximal Intensity Projection images (TX P). All images stored on PACS. All CT scanners at this facility use dose modulation, iterative reconstruction, and/or weight based d osing when appropriate to reduce radiation dose to as low as reasonably achievable (ALARA). [facility]: Dose Right [facility]: CareDose [facility]: Dose Right [facility]: Teradose 4D [facility]: Amitive CONTRAST TYPE AND DOSE: contrast/concentration: Isovue 370.00 mg/ml; Total Contrast Delivered: 72.0 ml; Total Saline Delivered: 80.0 ml Contrast bolus optimized for the pulmonary arteries. Not diagnostic for the aorta. RENAL FUNCTION: Creatinine measures 1.20 RADIATION DOSE: Up-to-date CT equipment and radiation dose reduction techniques were employed. CTDIv ol: 17.5 - 33.1 mGy. DLP: 710 mGy-cm. . LIMITATIONS: None. FINDINGS: LUNGS AND PLEURA: Rounded subpleural airspace disease posterior basal segment right lower lobe with adjacent pleural effusion compatible with pulmonary infarction. Lungs and pleural spaces o therwise clear. AORTA AND GREAT VESSELS: No aneurysm. Contrast bolus not optimized for the aorta. HEART: No pericardial effusion. Cardiomegaly. Moderate to marked coronary artery calcifications. PULMONARY ARTERIES: No central pulmonary embolus identified however there is eccentric thrombus seen within a segmental branch right lower lobe seen on 66 through 70 which is likely subacute. No addit ional emboli identified. HILAR AND MEDIASTINAL STRUCTURES: No identified masses or abnormal nodes. HARDWARE: None in the chest. UPPER ABDOMEN: No significant change from recent CT abdomen performed on 03/28/2017. THYROID AND OTHER SOFT TISSUES: No masses. No adenopathy. BONES: No acute or significant finding. 3D MIPS: Confirm above findings. OTHER: No other significant finding. IMPRESSION: AREA PULMONARY INFARCTION IN THE RIGHT LOWER LOBE WITH ASSOCIATED PLEURAL EFFUSION IN TH E SETTING OF SUBACUTE PULMONARY EMBOLI SEGMENTAL BRANCHES RIGHT LOWER LOBE. CORONARY ARTERY DISEASE. COMMENT: Category of Critical Exam: Pertinent findings on the imaging study reported as a CRITICAL RESULT to ED PHYSICIAN at08:59 on 07/29. Category of Critical Result: PULMONARY EMBOLUS. Quality ID # [id number]: Final reports with documentation of one or more dose reduction techniques (e.g., Au tomated exposure control, adjustment of the mA and/or kV according to patient size, use of iterative reconstruction technique) TECHNICAL DOCUMENTATION: JOB ID: [id number] [employer]- All Rights Reserved
[2017-08-07] MEDS ORDERED: RIVAROXABAN 15 MG TABLET PO ONE (09:42)
[2017-08-07] MEDS ORDERED: LORAZEPAM 0.5 MG TABLET PO ONE (10:28)
[2017-08-07] MEDS ORDERED: TEMAZEPAM 15 MG CAPSULE PO PRN (11:36)
[2017-08-07] MEDS ORDERED: ACETAMINOPHEN 325 MG TABLET PO PRN (11:36)
[2017-08-07] MEDS ORDERED: OXYCODONE-ACETAMINOPHEN 5-325 MG TABLET PO PRN ×2 (11:36→12:46)
[2017-08-07] MEDS ORDERED: (PENDING PHARMACY ID) (Oxycodone Hcl/Acetaminophen [Oxycodon-Acetaminophen 7.5-325] 1 TAB) PO PRN (11:43)
[2017-08-07] MEDS ORDERED: IPRATROPIUM BROMIDE HFA 17 MCG/PUFF 200 PUFF/12.9 GM MDI IH PRN (11:43)
[2017-08-07] MEDS ORDERED: COLCHICINE 0.6 MG TABLET PO PRN (11:43)
[2017-08-07] MEDS ORDERED: TRIAMCINOLONE ACETONIDE 0.1% CREAM 15 GM TOP PRN (11:43)
--- NOTE | 2017-08-07 12:05 | PDOC H&P ---
History of Present Illness Admission Date/PCP: 08/07/17 10:06 ANA TILLEY MD Patient complains of: hemoptysis History of Present Illness: The patient is a pleasant 72-year-old gentleman who presented to the emergency room with a 10 day history of hemoptysis. The patient was recently seen and had an outpatient chest x-ray performed which revealed no acute pathology. The patient was diagnosed with a community-acquired pneumonia and started on a Z-Reed. The patient finished all of his medication but had no improvement with his hemoptysis. He also reports a 10 pound weight loss over the past few weeks. In the emergency room he had an EKG which revealed a right bundle nikolay block branch block which is chronic for him. He had a CT angiography of the chest which revealed pulmonary embolus and a small area of pulmonary infarction. Due to the fact that he was having ongoing hemoptysis and was somewhat tachycardic he was referred for admission. Past Medical History Cardiac Medical History: Reports: Hyperlipidema Pulmonary Medical History: Reports: Asthma EENT Medical History: Reports: None Neurological Medical History: Reports: None Endocrine Medical History: Reports: Diabetes Mellitus Type 2 - borderline, Hypothyroidism Renal/ Medical History: Reports: None Malignancy Medical History: Reports: None GI Medical History: Reports: None Musculoskeltal Medical History: Reports: Arthritis - gout, Gout Skin Medical History: Reports: None Psychiatric Medical History: Reports: Depression Traumatic Medical History: Reports: None Hematology: Reports: None Infectious Medical History: Reports: None Past Surgical History Past Surgical History: Reports: Orthopedic Surgery - Anterior cervical fusion, Tonsillectomy Social History Information Source: Patient Lives with: Spouse/Significant other Smoking Status: Current Every Day Smoker Frequency of Alcohol Use: None Hx Recreational Drug Use: No Drugs: None Hx Prescription Drug Abuse: Yes - Advance Directive Resuscitation Status: Full Code Surrogate healthcare decision maker:: His surrogate decision maker is his , Geno Church Family History Family History: Reviewed & Not Pertinent Parental Family History Reviewed: Yes Children Family History Reviewed: Yes Sibling(s) Family History Reviewed.: Yes Medication/Allergy Home Medications: Allopurinol [Zyloprim 100 mg Tablet] 100 mg PO DAILY 08/07/17 Aspirin [Aspirin EC] 81 mg PO DAILY 08/07/17 Colchicine [Colchicine 0.6 mg Tablet] 0.6 mg PO DAILYP PRN 08/07/17 Gemfibrozil [Lopid] 1,200 mg PO DAILY 08/07/17 Ipratropium [place] [Atrovent Hfa] 1 puff IH Q6HP PRN 08/07/17 Levothyroxine Sodium [Synthroid 0.075 mg Tablet] 75 mcg PO DAILY 08/07/17 Metformin HCl [Metformin HCl ER] 1,000 mg PO DAILY 08/07/17 Multivitamin [Daily Multiple Vitamin] 1 tab PO DAILY 08/07/17 [place]-3 Fatty Acids/Fish Oil [Fish Oil 1,000 mg Capsule] 2,000 mg PO DAILY 08/07 Oxycodone HCl/Acetaminophen [Oxycodon-Acetaminophen 7.5-325] 1 tab PO Q8HP PRN 08/07/17 Potassium Citrate Cr Tablet 2,160 mg PO DAILY 08/07/17 Sertraline HCl [Zoloft 50 mg Tablet] 100 mg PO DAILY 08/07/17 Triamcinolone Acetonide [Triderm] 1 applic TOP QIDP PRN 08/07/17 Allergies/Adverse Reactions: No Known Allergies Allergy (Verified 03/28/17 11:35) Review of Systems Constitutional: PRESENT: weight loss - 10 pounds over the past couple of weeks. Eyes: ABSENT: visual disturbances Ears: ABSENT: hearing changes Nose, Mouth, and Throat: ABSENT: headache(s), mouth pain, sore throat, vertigo Cardiovascular: ABSENT: chest pain, dyspnea on exertion, edema, orthropnea, palpitations Respiratory: PRESENT: cough, hemoptysis. ABSENT: dyspnea, sputum Gastrointestinal: ABSENT: abdominal pain, bloating, constipation, diarrhea, dysphagia, hematemesis, hematochezia, melena, nausea, vomiting Genitourinary: ABSENT: difficulty urinating, dysuria, hematuria, nocturia Musculoskeletal: PRESENT: back pain Integumentary: ABSENT: diaphoresis, erythema, lesions, pruritus, rash Neurological: PRESENT: frequent falls - The patient reports having 2-3 falls over the past couple of months.. ABSENT: abnormal gait, abnormal speech, confusion, dizziness, lack of coordination, memory loss, syncope, tingling, weakness Psychiatric: PRESENT: depression. ABSENT: anxiety, hallucinations, homidical ideation, suicidal ideation Endocrine: ABSENT: cold intolerance, flushing, heat intolerance, polydipsia, polyphagia, polyuria Hematologic/Lymphatic: ABSENT: easy bleeding, easy bruising, lymphadenopathy Allergic/Immunologic: ABSENT: seasonal rhinorrhea Physical Exam Vital Signs: Temp Pulse Resp BP Pulse Ox 98.8 F 100 21 H 144/91 H 96 08/07/17 06:47 08/07/17 06:47 08/07/17 11:00 08/07/17 10:01 08/07/17 11:00 General appearance: PRESENT: no acute distress, well-developed, well-nourished Head exam: PRESENT: atraumatic, normocephalic Eye exam: PRESENT: conjunctiva pink, EOMI, PERRLA. ABSENT: scleral icterus Ear exam: PRESENT: normal external ear exam Mouth exam: PRESENT: moist, tongue midline Neck exam: ABSENT: carotid bruit, JVD, lymphadenopathy, thyromegaly Respiratory exam: PRESENT: clear to auscultation trisha. ABSENT: rales, rhonchi, wheezes Cardiovascular exam: PRESENT: RRR. ABSENT: diastolic murmur, rubs, systolic murmur Pulses: PRESENT: normal dorsalis pedis pul Vascular exam: PRESENT: normal capillary refill GI/Abdominal exam: PRESENT: normal bowel sounds, soft. ABSENT: distended, guarding, mass, organolmegaly, rebound, tenderness Rectal exam: PRESENT: deferred Extremities exam: PRESENT: full ROM. ABSENT: calf tenderness, clubbing, pedal edema Musculoskeletal exam: PRESENT: ambulatory Neurological exam: PRESENT: alert, awake, oriented to person, oriented to place , oriented to time, oriented to situation, CN II-XII grossly intact. ABSENT: motor sensory deficit Psychiatric exam: PRESENT: appropriate affect, normal mood. ABSENT: homicidal ideation, suicidal ideation Skin exam: PRESENT: dry, intact, warm. ABSENT: cyanosis, rash Results Impressions: Chest/Abdomen CTA 08/07/17 07:29 IMPRESSION: AREA PULMONARY INFARCTION IN THE RIGHT LOWER LOBE WITH ASSOCIATED PLEURAL EFFUSION IN THE SETTING OF SUBACUTE PULMONARY EMBOLI SEGMENTAL BRANCHES RIGHT LOWER LOBE. CORONARY ARTERY DISEASE. Assessment & Plan - Diagnosis (1) Pulmonary embolism Qualifiers: Pulmonary embolism type: other Chronicity: acute Acute cor pulmonale presence: without acute cor pulmonale Qualified Code(s): I26.99 - Other pulmonary embolism without acute cor pulmonale Plan: The patient states that he has been lying in the bed resting as he had a recent fall with broken ribs which prompted his pneumonia. He states that the physician at the time told him to be on bedrest. Hopefully this is the source of his pulmonary embolism. He will be started on Xarelto 15 mg twice daily today. We will defer to his outpatient physician for hypercoagulable workup if felt necessary. (2) Hemoptysis Plan: Hemoglobin is quite normal and greater than 16 at this point. We will keep him in the hospital overnight since he has been started on anticoagulation and recheck a CBC in the morning. (3) Pulmonary infarction Plan: Possibly the source of his hemoptysis. (4) Hypernatremia Plan: We will have a chemistry panel drawn in the morning. (5) Diabetes Qualifiers: Diabetes mellitus type: type 2 Diabetes mellitus complication status: without complication Is this a current diagnosis for this admission?: Yes Plan: The patient's metformin will be held as he recently had contrast dye for his CT angiogram. We will cover him with sliding scale insulin here in the hospital. (6) Gout Plan: Continue allopurinol (7) Depression Plan: Continue sertraline (8) Hyperlipidemia Plan: Continue gemfibrozil (9) Hypothyroidism Plan: Continue Synthroid - Time Time Spent: 50 to 70 Minutes - Inpatient Certification Medical Necessity: Other - The patient will be placed in observation in the hospital. He will be started on full dose anticoagulation and we will follow his hemoptysis and blood counts closely. I anticipate that he will require less than 2 midnights in the hospital.
[2017-08-07] MEDS ORDERED: OXYCODONE HCL IR 5 MG TABLET PO PRN (12:47)
[2017-08-07] MEDS ORDERED: SERTRALINE HCL 50 MG TABLET PO ONE ×2 (13:30→18:15)
[2017-08-07] MEDS: GEMFIBROZIL 600 MG TABLET PO SCH (18:12)
[2017-08-07] MEDS: RIVAROXABAN 15 MG TABLET PO SCH (18:13)
[2017-08-08 04:48] LABS: ABSOLUTE BASOPHILS # (AUTO) 0.1 10^3/uL (0.0-0.2); ABSOLUTE EOSINOPHILS # (AUTO) 0.5 10^3/uL (0.0-0.6); ABSOLUTE LYMPHOCYTES (AUTO) 1.9 10^3/uL (0.5-4.7); ABSOLUTE MONOCYTES (AUTO) 0.8 10^3/uL (0.1-1.4); ABSOLUTE NEUT (AUTO) 4.4 10^3/uL (1.7-8.2); HEMOGLOBIN 15.1 g/dL (13.5-17.0); HGB HCT DIFFERENCE 0.3; LYMPHOCYTES % (AUTO) 24.5 % (13-45); MEAN CORPUSCULAR HEMOGLOBIN 30.6 pg (27.0-33.4); MEAN CORPUSCULAR HGB CONC 33.6 g/dL (32.0-36.0); MEAN CORPUSCULAR VOLUME 91 fl (80-97); RED BLOOD COUNT 4.95 10^6/uL (4.35-5.55); SEGMENTED NEUTROPHILS % (AUTO) 57.5 % (42-78); WHITE BLOOD COUNT 7.7 10^3/uL (4.0-10.5)
[2017-08-08 05:15] LABS: ALANINE AMINOTRANSFERASE 40 U/L (21-72); ALBUMIN 3.7 g/dL (3.5-5.0); ALKALINE PHOSPHATASE 118 U/L (38-126); ANION GAP 11 (5-19); ASPARTATE AMINO TRANSFERASE 17 U/L (17-59); BILIRUBIN,DIRECT 0.4 mg/dL (0.0-0.4); BILIRUBIN,TOTAL 0.5 mg/dL (0.2-1.3); BLOOD UREA NITROGEN 18 mg/dL (7-20); CALCIUM 8.9 mg/dL (8.4-10.2); CARBON DIOXIDE 28 mmol/L (22-30); CHLORIDE 107 mmol/L (98-107); CREATININE RESULT 1.19 mg/dL (0.52-1.25); GLUCOSE 107 mg/dL (75-110); MAGNESIUM 2.3 mg/dL (1.6-2.3); PHOSPHORUS 3.8 mg/dL (2.5-4.5); POTASSIUM 4.7 mmol/L (3.6-5.0); SODIUM 145.5 mmol/L (137-145); TOTAL PROTEIN 6.3 g/dL (6.3-8.2)
[2017-08-08] MEDS: RIVAROXABAN 15 MG TABLET PO SCH (08:05)
--- NOTE | 2017-08-08 08:47 | EKG REPORT ---
SEVERITY:- ABNORMAL ECG - SINUS RHYTHM RIGHT BUNDLE BRANCH BLOCK LAFB : Confirmed by: Shaji Crawley MD 08-Aug-2017 08:46:46
[2017-08-08] MEDS: GEMFIBROZIL 600 MG TABLET PO SCH (09:06)
[2017-08-08] MEDS ORDERED: ALLOPURINOL 100 MG TABLET PO SCH (10:00)
[2017-08-08] MEDS ORDERED: SERTRALINE HCL 50 MG TABLET PO SCH (10:00)
[2017-08-08] MEDS ORDERED: ASPIRIN 81 MG TABLET, ENT COATED PO SCH (10:00)
[2017-08-08] MEDS ORDERED: LEVOTHYROXINE SODIUM 0.075 MG TABLET PO SCH (10:00)
[2017-08-08] MEDS ORDERED: POTASSIUM CITRATE PO SCH (10:00)
[2017-08-08] MEDS ORDERED: (PENDING PHARMACY ID) (Omega-3 Fatty Acids/Fish Oil [Fish Oil 1,000 Mg Capsule] 2,000 MG) PO SCH (10:00)
[2017-08-08] MEDS ORDERED: OMEGA-3 ACID ETHYL ESTERS 1 GM CAPSULE PO SCH (10:00)
[2017-08-08] MEDS ORDERED: MULTIVITAMIN TABLET PO SCH (10:00)
[2017-08-08 10:27] LABS: ABSOLUTE BASOPHILS # (AUTO) 0.1 10^3/uL (0.0-0.2); ABSOLUTE EOSINOPHILS # (AUTO) 0.5 10^3/uL (0.0-0.6); ABSOLUTE LYMPHOCYTES (AUTO) 2.2 10^3/uL (0.5-4.7); ABSOLUTE MONOCYTES (AUTO) 0.6 10^3/uL (0.1-1.4); ABSOLUTE NEUT (AUTO) 4.4 10^3/uL (1.7-8.2); EOSINOPHILS % (AUTO) 6.8 % (0-6); HEMATOCRIT 44.6 % (37.9-51.0); HGB HCT DIFFERENCE 0.4; LYMPHOCYTES % (AUTO) 28.3 % (13-45); MEAN CORPUSCULAR HEMOGLOBIN 30.2 pg (27.0-33.4); MEAN CORPUSCULAR HGB CONC 33.6 g/dL (32.0-36.0); MEAN CORPUSCULAR VOLUME 90 fl (80-97); MONOCYTES % (AUTO) 8.1 % (3-13); RED BLOOD COUNT 4.96 10^6/uL (4.35-5.55); RED CELL DISTRIBUTION WIDTH 13.9 % (11.5-14.0); SEGMENTED NEUTROPHILS % (AUTO) 55.8 % (42-78); WHITE BLOOD COUNT 7.9 10^3/uL (4.0-10.5)
--- NOTE | 2017-08-08 10:45 | PDOC DISCHARGE SUMMARY ---
General - Admit/Disc Date/PCP Admission Date/Primary Care Provider: 08/07/17 11:36 ANA TILLEY MD Discharge Date: 08/08/17 - Discharge Diagnosis (1) Pulmonary embolism Is this a current diagnosis for this admission?: Yes Summary: The patient has been started on Xarelto. He will follow-up with his primary care physician next week. I will defer to his primary care physician on hypercoagulable workup if felt to be necessary. The patient states he has been laying around quite a bit after fracturing his ribs from a recent fall. (2) Hemoptysis Summary: Possibly due to pulmonary infarction. If this persists would recommend further evaluation with pulmonology. The patient was placed in observation over the night as he had been started on full dose anticoagulation. His hemoptysis is unchanged and his hemoglobin is stable. (3) Pulmonary infarction Summary: Secondary to pulmonary embolus. (4) Hypernatremia Summary: This is quite mild. I would recommend follow-up chemistry panel with Dr. Crane next week. (5) Diabetes Is this a current diagnosis for this admission?: Yes Summary: He will resume his metformin tomorrow. His metformin was held for 2 days as he received IV contrast dye for his CT angiography. (6) Gout Summary: Resume home regimen (7) Depression Summary: Continue sertraline (8) Hyperlipidemia Summary: Continue gemfibrozil (9) Hypothyroidism Summary: Continue Synthroid - Additional Information Resuscitation Status: Full Code Discharge Diet: Diabetic Discharge Activity: Activity As Tolerated, Balance Activity w/Rest, Slowly Increase Activity Home Medications: Allopurinol [Zyloprim 100 mg Tablet] 100 mg PO DAILY 08/07/17 Aspirin [Aspirin EC] 81 mg PO DAILY 08/07/17 Colchicine [Colchicine 0.6 mg Tablet] 0.6 mg PO DAILYP PRN 08/07/17 Gemfibrozil [Lopid] 1,200 mg PO DAILY 08/07/17 Ipratropium [place] [Atrovent Hfa] 1 puff IH Q6HP PRN 08/07/17 Levothyroxine Sodium [Synthroid 0.075 mg Tablet] 75 mcg PO DAILY 08/07/17 Metformin HCl [Metformin HCl ER] 1,000 mg PO DAILY 08/07/17 Multivitamin [Daily Multiple Vitamin] 1 tab PO DAILY 08/07/17 [place]-3 Fatty Acids/Fish Oil [Fish Oil 1,000 mg Capsule] 2,000 mg PO DAILY 08/07 Oxycodone HCl/Acetaminophen [Oxycodon-Acetaminophen 7.5-325] 1 tab PO Q8HP PRN 08/07/17 Potassium Citrate Cr Tablet 2,160 mg PO DAILY 08/07/17 Sertraline HCl [Zoloft 50 mg Tablet] 100 mg PO DAILY 08/07/17 Triamcinolone Acetonide [Triderm] 1 applic TOP QIDP PRN 08/07/17 Pantoprazole Sodium [Protonix] 40 mg PO DAILY #30 tablet. 08/08/17 Rivaroxaban [Xarelto] 1 each PO ASDIR #1 tab.ds.pk 08/08/17 History of Present Illness History of Present Illness: The patient is a pleasant 72-year-old gentleman who presented to the emergency room with a 10 day history of hemoptysis. The patient was recently seen and had an outpatient chest x-ray performed which revealed no acute pathology. The patient was diagnosed with a community-acquired pneumonia and started on a Z-Reed. The patient finished all of his medication but had no improvement with his hemoptysis. He also reports a 10 pound weight loss over the past few weeks. In the emergency room he had an EKG which revealed a right bundle nikolay block branch block which is chronic for him. He had a CT angiography of the chest which revealed pulmonary embolus and a small area of pulmonary infarction. Due to the fact that he was having ongoing hemoptysis and was somewhat tachycardic he was referred for admission. Hospital Course Hospital Course: The patient was started on full dose anticoagulation with Xarelto. He was kept in the hospital overnight to make sure that his hemoglobin remained stable as he was still having hemoptysis. This morning the patient is feeling great. He has been up ambulating in his room. His hemoglobin is remained stable and he desires to go home. I would like for him to follow-up with his primary care physician next week for repeat labs. I have started him on Xarelto as well as Protonix to help protect his stomach as he was already on antiplatelet therapy. At this point it is felt that he can safely be discharged home. He will follow-up with his primary care physician next week. Physical Exam Vital Signs: Temp Pulse Resp BP Pulse Ox 98.0 F 72 20 128/80 H 94 08/08/17 07:21 08/08/17 07:21 08/08/17 07:21 08/08/17 07:21 08/08/17 07:21 Intake & Output 08/07/17 08/08/17 08/09/17 06:59 06:59 06:59 Intake Total 240 Output Total 125 Balance 115 Weight 81 kg General appearance: PRESENT: no acute distress, well-developed, well-nourished Eye exam: PRESENT: conjunctiva pink, EOMI, PERRLA. ABSENT: scleral icterus Ear exam: PRESENT: normal external ear exam Mouth exam: PRESENT: moist, tongue midline Neck exam: ABSENT: carotid bruit, JVD, lymphadenopathy, thyromegaly Respiratory exam: PRESENT: clear to auscultation trisha. ABSENT: rales, rhonchi, wheezes Cardiovascular exam: PRESENT: RRR. ABSENT: diastolic murmur, rubs, systolic murmur GI/Abdominal exam: PRESENT: normal bowel sounds, soft. ABSENT: distended, guarding, mass, organolmegaly, rebound, tenderness Extremities exam: PRESENT: full ROM. ABSENT: calf tenderness, clubbing, pedal edema Musculoskeletal exam: PRESENT: ambulatory Neurological exam: PRESENT: alert, awake, oriented to person, oriented to place , oriented to time, oriented to situation, CN II-XII grossly intact. ABSENT: motor sensory deficit Psychiatric exam: PRESENT: appropriate affect, normal mood. ABSENT: homicidal ideation, suicidal ideation Skin exam: PRESENT: dry, intact, warm. ABSENT: cyanosis, rash Results Laboratory Results: 08/08/17 09:57 08/08/17 03:58 08/08/17 08/08/17 08/08/17 03:58 03:58 03:58 WBC 7.7 RBC 4.95 Hgb 15.1 Hct 45.0 MCV 91 MCH 30.6 MCHC 33.6 RDW 14.0 Plt Count 296 Seg Neutrophils % 57.5 Lymphocytes % 24.5 Monocytes % 10.0 Eosinophils % 7.0 H Basophils % 1.0 Absolute Neutrophils 4.4 Absolute Lymphocytes 1.9 Absolute Monocytes 0.8 Absolute Eosinophils 0.5 Absolute Basophils 0.1 Sodium 145.5 H Potassium 4.7 Chloride 107 Carbon Dioxide 28 Anion Gap 11 BUN 18 Creatinine 1.19 Est GFR ( Amer) > 60 Est GFR (Non-Af Amer) > 60 Glucose 107 Calcium 8.9 Phosphorus 3.8 Magnesium 2.3 Total Bilirubin 0.5 AST 17 ALT 40 Alkaline Phosphatase 118 Total Protein 6.3 Albumin 3.7 TSH 1.15 08/08/17 09:57 WBC 7.9 RBC 4.96 Hgb 15.0 Hct 44.6 MCV 90 MCH 30.2 MCHC 33.6 RDW 13.9 Plt Count 294 Seg Neutrophils % 55.8 Lymphocytes % 28.3 Monocytes % 8.1 Eosinophils % 6.8 H Basophils % 1.0 Absolute Neutrophils 4.4 Absolute Lymphocytes 2.2 Absolute Monocytes 0.6 Absolute Eosinophils 0.5 Absolute Basophils 0.1 Sodium Potassium Chloride Carbon Dioxide Anion Gap BUN Creatinine Est GFR ( Amer) Est GFR (Non-Af Amer) Glucose Calcium Phosphorus Magnesium Total Bilirubin AST ALT Alkaline Phosphatase Total Protein Albumin TSH Impressions: Chest/Abdomen CTA 08/07/17 07:29 IMPRESSION: AREA PULMONARY INFARCTION IN THE RIGHT LOWER LOBE WITH ASSOCIATED PLEURAL EFFUSION IN THE SETTING OF SUBACUTE PULMONARY EMBOLI SEGMENTAL BRANCHES RIGHT LOWER LOBE. CORONARY ARTERY DISEASE. Qualifiers PATEINT BEING DISCHARGED WITH ANY OF THE FOLLOWING DIAGNOSIS?: No Plan Discharge Plan: He will be discharged home today in stable condition with close outpatient follow-up Time Spent: Greater than 30 Minutes
[2017-08-08 11:42] VITALS: BP 125/89
== END 2017-08-08 12:09 | disposition home or self-care (01) ==
LOC: ER 06:38 → UNDOADMOB 10:06 → EH 10:06 → 4W 11:54
PROVIDERS: ADMIT Internal Medicine; ATTEND Internal Medicine
DX: I26.99 Other pulmonary embolism without acute cor pulmonale (principal); R04.2 Hemoptysis; E87.0 Hyperosmolality and hypernatremia; E11.9 Type 2 diabetes mellitus without complications; M10.9 Gout, unspecified; F32.9 Major depressive disorder, single episode, unspecified; E78.5 Hyperlipidemia, unspecified; R63.4 Abnormal weight loss; E03.9 Hypothyroidism, unspecified; I45.10 Unspecified right bundle-branch block; F17.200 Nicotine dependence, unspecified, uncomplicated; M54.9 Dorsalgia, unspecified; R29.6 Repeated falls; J45.909 Unspecified asthma, uncomplicated; Z79.84 Long term (current) use of oral hypoglycemic drugs; Z79.899 Other long term (current) drug therapy; Z79.82 Long term (current) use of aspirin; Z91.81 History of falling; Z87.01 Personal history of pneumonia (recurrent); Z87.81 Personal history of (healed) traumatic fracture
CPT/HCPCS: 93005 ×2; 99291; 96360; 96361; 36415 ×2; 87040; 83690; 83735; 84100; 84443; 85025 ×2; 85610; 85730; 80053 ×2; 84484; 82803; 83605; 71275; 93010 ×2; A9270 ×12; J3490 ×2; J7030; J7040

== ENCOUNTER → 2017-08-17 | Outpatient (CLI) | payer MEDICARE ==
--- NOTE | 2017-08-17 12:55 | XCELERA REPORT ---
[address] [address] Lower Extremity Venous Evaluation Name: FLOYD QUINTEROS Age: 72 yrs Gender: Male : 1945 Patient Status: Outpatient Patient Location: [facility] Study Date: 08/17/2017 09:52 AM Procedure: Color flow and duplex imaging bilaterally of the veins of the lower extremities as well as the Common Femoral veins. Reason For Study: PE Ordering Physician: JACQUE CREWS Performed By: Yue Haddad Right Sided Venous Evaluation Normal vessel filling wall to wall, compression and augmentation as well as Colour flow down to the infrageniculate veins. Left Sided Venous Evaluation Normal vessel filling wall to wall, compression and augmentation as well as Colour flow down to the infrageniculate veins. Interpretation Summary No duplex evidence of DVT or obstruction in the bilateral lower extremities. : JACQUE CREWS > Jas Webber
== END ==
LOC: SP 09:46
PROVIDERS: ATTEND Physician Assistant
DX: I26.99 Other pulmonary embolism without acute cor pulmonale (principal)
CPT/HCPCS: 93970

== ENCOUNTER 2017-12-12 08:25 | Emergency (ER) | payer MEDICARE ==
[2017-12-12] MEDS ORDERED: NAPROXEN 250 MG TABLET PO ONE (08:42)
[2017-12-12] MEDS ORDERED: LIDOCAINE 5% (700 MG) TRANSDERMAL ADH..PATCH TP ONE ×2 (08:42→10:09)
--- NOTE | 2017-12-12 08:45 | ER Document Report ---
ED General Pain - General Chief Complaint: Rib Pain Stated Complaint: RIB PAIN Time Seen by Provider: 12/12/17 08:40 Notes: The patient is a 72-year-old male who who fractured a right rib 4 weeks ago after a fall. He saw his primary care physician and was prescribed [place], but patient is still having pain. He denies any other injuries, SOB, cough, fevers , headache, abdominal pain, nausea or vomiting. TRAVEL OUTSIDE OF THE [place] IN LAST 30 DAYS: No - Related Data Allergies/Adverse Reactions: No Known Allergies Allergy (Verified 03/28/17 11:35) Past Medical History - General Information source: Patient - Social History Smoking Status: Unknown if Ever Smoked Family History: Reviewed & Not Pertinent - Past Medical History Cardiac Medical History: Reports: Hx Hypercholesterolemia Pulmonary Medical History: Reports: Hx Asthma Endocrine Medical History: Reports: Hx Diabetes Mellitus Type 2 - borderline, Hx Hypothyroidism Renal/ Medical History: Reports: Hx Kidney Stones. Denies: Hx Peritoneal Dialysis Musculoskeltal Medical History: Reports Hx Arthritis - gout, Reports Hx Gout Psychiatric Medical History: Reports: Hx Depression Past Surgical History: Reports: Hx Orthopedic Surgery - Anterior cervical fusion , Hx Tonsillectomy - Immunizations Hx Diphtheria, Pertussis, Tetanus Vaccination: Yes Hx Pneumococcal Vaccination: 07/10/10 Review of Systems - Review of Systems Notes: REVIEW OF SYSTEMS: CONSTITUTIONAL: -fevers, -chills EENT: -eye pain, -difficulty swallowing, -nasal congestion CARDIOVASCULAR: +chest wall pain, -syncope. RESPIRATORY: -cough, -SOB GASTROINTESTINAL: -abdominal pain, -nausea, -vomiting, -diarrhea GENITOURINARY: -dysuria, -hematuria MUSCULOSKELETAL: -back pain, -neck pain SKIN: -rash or skin lesions. HEMATOLOGIC: -easy bruising or bleeding LYMPHATIC: -swollen, enlarged glands. NEUROLOGICAL: -altered mental status or loss of consciousness, -headache, - neurologic symptoms PSYCHIATRIC: -anxiety, -depression. ALL OTHER SYSTEMS REVIEWED AND NEGATIVE. Physical Exam - Vital signs Vitals: Temp Pulse Resp BP Pulse Ox 98.1 F 108 H 20 141/96 H 98 12/12/17 08:34 12/12/17 08:34 12/12/17 08:34 12/12/17 08:34 12/12/17 08:34 - Notes Notes: PHYSICAL EXAMINATION: GENERAL: Uncomfortable. HEAD: Atraumatic, normocephalic. EYES: Pupils equal round and reactive to light, extraocular movements intact, sclera anicteric, conjunctiva are normal. ENT: nares patent, oropharynx clear without exudates. Moist mucous membranes. NECK: Normal range of motion, supple without lymphadenopathy LUNGS: Breath sounds clear to auscultation bilaterally and equal. No wheezes rales or rhonchi. No respiratory distress. HEART: Regular rate and rhythm without murmurs CHEST WALL: Tenderness over right lateral lower rib, no palpable deformity ABDOMEN: Soft, nontender, normoactive bowel sounds. No guarding, no rebound. No masses appreciated. EXTREMITIES: Normal range of motion, no pitting or edema. No cyanosis. NEUROLOGICAL: Cranial nerves grossly intact. Normal speech, normal gait. Normal sensory and motor exams. PSYCH: Normal mood, normal affect. SKIN: Warm, Dry, normal turgor, no rashes or lesions noted. Course - Re-evaluation Re-evalutation: Pt with his known acute 9th right rib fracture after a fall 1 month ago. No evidence of pneumonia or pneumothorax on x-ray. Patient is still in a lot of pain and will help provide a multimodal approach due to this pain. He is in no respiratory distress and satting 90% on room air. Instructed him to continue following up with his primary care physician and pain management as needed. Given return precautions about pneumonia or pneumothorax and he understands. - Vital Signs Vital signs: Temp Pulse Resp BP Pulse Ox 98.1 F 108 H 20 141/96 H 98 12/12/17 08:34 12/12/17 08:34 12/12/17 08:34 12/12/17 08:34 12/12/17 08:34 - Diagnostic Test Radiology reviewed: Image reviewed, Reports reviewed Radiology results interpreted by me: Right rib x-ray: Acute right 9th rib fracture Discharge - Discharge Clinical Impression: Closed rib fracture Qualifiers: Encounter type: initial encounter Rib fracture type: single rib Laterality: right Qualified Code(s): S22.31XA - Fracture of one rib, right side, initial encounter for closed fracture Condition: Stable Disposition: HOME, SELF-CARE Additional Instructions: Use the Lidoderm patches, Voltaren gel, Robaxin for muscle spasms, heat packs and Percocet for severe pain. You must follow-up with your primary care physician and pain management physicians for further treatment. Rib Injuries and Fractures You have been diagnosed as having either bruised or broken ribs. These two injuries are treated in the same way. It will usually take four to six weeks for these injured ribs to heal. Sometimes, rib belts or anesthetic injections of the chest wall help reduce the pain. If you are using a rib belt, you should cough or take a deep breath at least every hour or two to prevent lung complications. You should not engage in any strenuous physical activity until released by your physician. The usual rule is "if it hurts, don't do it." Rib fractures can lead to serious lung complications including lung collapse, hemorrhage, and pneumonia. You should call the physician or return at once if any of the following occur: (1) Fever or chills. (2) Persistent cough, coughing up blood, or shortness of breath. (3) Increasing pain. (4) Weakness, lightheadedness, or fainting. Prescriptions: Diclofenac Sodium [Voltaren] 100 gm TP Q8H PRN #1 unit PRN Reason: Lidocaine [Lidoderm 5% (700 mg) Transdermal Patch] 1 patch TP DAILY #10 adh..patch Methocarbamol [Robaxin 500 mg Tablet] 500 mg PO Q4H PRN #15 tablet PRN Reason: Oxycodone HCl/Acetaminophen [Percocet 5-325 mg Tablet] 1 - 2 tab PO Q4H PRN #15 tablet PRN Reason: Forms: Elevated Blood Pressure Referrals: ANA TILLEY MD [Primary Care Provider] - Follow up as needed [facility] [Provider Group] - Follow up as needed
--- NOTE | 2017-12-12 09:38 | RADIOLOGY REPORT (SQ) ---
EXAM DESCRIPTION: RIBS RIGHT W/PA CHEST COMPLETED DATE/TIME: 12/12/2017 9:07 am REASON FOR STUDY: right chest wall pain, hx of rib fractures COMPARISON: None. TECHNIQUE: Frontal view of the chest and additional views of the right ribs acquired. NUMBER OF VIEWS: Four view. LIMITATIONS: None. FINDINGS: FRONTAL CXR: No pneumothorax. No pleural effusion. No atelectasis or infiltrates. RIBS: Nondisplaced recent right 9th lateral rib fracture. Several healed rib fractures. OTHER: No other significant finding. IMPRESSION: Acute right 9th lateral rib fracture. COMMENT: SITE OF TRAUMA/COMPLAINT MARKED/STAMP COMPLETED: NO. TECHNICAL DOCUMENTATION: JOB ID: [id number] [employer]- All Rights Reserved Reading location - IP/workstation name: [email or web address]
[2017-12-12] MEDS ORDERED: OXYCODONE-ACETAMINOPHEN 5-325 MG TABLET PO ONE (10:09)
[2017-12-12 10:59] VITALS: BP 135/95
== END 2017-12-12 10:30 | disposition home or self-care (01) ==
LOC: ER 08:25
DX: S22.31XA Fracture of one rib, right side, initial encounter for closed fracture (principal); W19.XXXA Unspecified fall, initial encounter; E78.00 Pure hypercholesterolemia, unspecified; E11.9 Type 2 diabetes mellitus without complications; E03.9 Hypothyroidism, unspecified; Z87.442 Personal history of urinary calculi; Z98.1 Arthrodesis status
CPT/HCPCS: 99283; 71101; A9270 ×2

== ENCOUNTER 2018-01-03 14:15 | Emergency (ER) | payer MEDICARE ==
--- NOTE | 2018-01-03 14:46 | ER Document Report ---
ED General - General Chief Complaint: Urinary Problem Stated Complaint: BLOOD IN URINE Time Seen by Provider: 01/03/18 14:45 Mode of Arrival: Ambulatory Information source: Patient TRAVEL OUTSIDE OF THE [place] IN LAST 30 DAYS: No - HPI Onset: Other - 2 DAYS AGO Onset/Duration: Sudden Quality of pain: Dull Severity: Mild Context: Patient states he fell and broke 2 ribs in the right kidney area 6 weeks ago. Since that time he is developed a pulmonary embolism and is on Xarelto. Associated symptoms: None. denies: Chills, Fever Exacerbated by: Movement Relieved by: Remaining still Similar symptoms previously: No Recently seen / treated by doctor: Yes - DR. TILLEY - Related Data Allergies/Adverse Reactions: No Known Allergies Allergy (Verified 03/28/17 11:35) Past Medical History - General Information source: Patient - Social History Smoking Status: Former Smoker Cigarette use (# per day): No Chew tobacco use (# tins/day): No Frequency of alcohol use: Occasional Drug Abuse: None Lives with: Spouse/Significant other Family History: Reviewed & Not Pertinent Patient has suicidal ideation: No Patient has homicidal ideation: No - Past Medical History Cardiac Medical History: Reports: Hx Hypercholesterolemia Pulmonary Medical History: Reports: Hx Asthma Endocrine Medical History: Reports: Hx Diabetes Mellitus Type 2 - borderline, Hx Hypothyroidism Renal/ Medical History: Reports: Hx Kidney Stones. Denies: Hx Peritoneal Dialysis Musculoskeltal Medical History: Reports Hx Arthritis - gout, Reports Hx Gout Psychiatric Medical History: Reports: Hx Depression Past Surgical History: Reports: Hx Orthopedic Surgery - Anterior cervical fusion , Hx Tonsillectomy - Immunizations Hx Diphtheria, Pertussis, Tetanus Vaccination: Yes Hx Pneumococcal Vaccination: 07/10/10 Review of Systems - Review of Systems Constitutional: No symptoms reported. denies: Chills, Fever EENT: No symptoms reported Cardiovascular: No symptoms reported Respiratory: No symptoms reported Gastrointestinal: No symptoms reported Genitourinary: See HPI, Hematuria - NO CLOTS Musculoskeletal: See HPI Skin: No symptoms reported Hematologic/Lymphatic: No symptoms reported. denies: Easy bleeding, Easy bruising Neurological/Psychological: No symptoms reported Physical Exam - Vital signs Vitals: Temp Pulse Resp BP Pulse Ox 97.8 F 107 H 20 141/85 H 97 01/03/18 14:24 01/03/18 14:24 01/03/18 14:24 01/03/18 14:24 01/03/18 14:24 Interpretation: Hypertensive, Tachycardic. No: Tachypneic, Febrile - General General appearance: Appears well, Alert In distress: None - HEENT Head: Normocephalic Eyes: Normal Conjunctiva: Normal Ears: Normal Nasal: Normal Mouth/Lips: Normal Mucous membranes: Normal - Respiratory Respiratory status: No respiratory distress Breath sounds: Normal - Cardiovascular Rhythm: Regular Heart sounds: Normal auscultation Murmur: No - Abdominal Inspection: Normal Distension: No distension - Back Back: Normal, Tender, CVA tenderness - R. CVA - Extremities General upper extremity: Normal inspection General lower extremity: Normal inspection - Neurological Neuro grossly intact: Yes Cognition: Normal Orientation: AAOx4 - Psychological Associated symptoms: Normal affect, Normal mood - Skin Skin Temperature: Warm Skin Moisture: Dry Skin Color: Normal Skin Turgor: Elastic Course - Vital Signs Vital signs: Temp Pulse Resp BP Pulse Ox 97.8 F 107 H 20 141/85 H 97 01/03/18 14:24 01/03/18 14:24 01/03/18 14:24 01/03/18 14:24 01/03/18 14:24 - Laboratory Result Diagrams: 01/03/18 15:00 01/03/18 15:00 Laboratory results interpreted by me: 01/03/18 01/03/18 01/03/18 14:46 15:00 15:00 WBC 11.7 H RBC 6.01 H Hgb 17.9 H Hct 53.5 H RDW 14.6 H Absolute Eosinophils 0.7 H PT Glucose 198 H Calcium 10.3 H Alkaline Phosphatase 175 H Urine Protein 100 H Urine Blood LARGE H Ur Leukocyte Esterase MODERATE H 01/03/18 15:00 WBC RBC Hgb Hct RDW Absolute Eosinophils PT 23.2 H Glucose Calcium Alkaline Phosphatase Urine Protein Urine Blood Ur Leukocyte Esterase Discharge - Discharge Clinical Impression: Nephrolithiasis Hematuria Qualifiers: Hematuria type: gross Qualified Code(s): R31.0 - Gross hematuria Condition: Stable Disposition: HOME, SELF-CARE Instructions: Hematuria ([facility]), Trimethoprim-Sulfa ([facility]), Urinary Anesthetic Agent ([facility]), Kidney Stone ([facility]) Additional Instructions: REST, DRINK PLENTY OF FLUIDS. MEDS DIRECTED. FOLLOW UP WITH DR. TILLEY THIS WEEK, CALL OFFICE TOMORROW FOR APPOINTMENT. RETURN TO [facility] IF YOU GET WORSE, ANY TIME. Prescriptions: Phenazopyridine HCl [Pyridium 200 mg Tablet] 200 mg PO TID #15 tablet Sulfamethoxazole/Trimethoprim [Sulfamethoxazole-Tmp Ds Tablet] 1 each PO BID # 20 tablet Referrals: ANA TILLEY MD [Primary Care Provider] - Follow up in 3-5 days
[2018-01-03 15:08] LABS: ABSOLUTE BASOPHILS # (AUTO) 0.1 10^3/uL (0.0-0.2); ABSOLUTE EOSINOPHILS # (AUTO) 0.7 10^3/uL (0.0-0.6); ABSOLUTE LYMPHOCYTES (AUTO) 2.2 10^3/uL (0.5-4.7); ABSOLUTE MONOCYTES (AUTO) 0.6 10^3/uL (0.1-1.4); ABSOLUTE NEUT (AUTO) 8.2 10^3/uL (1.7-8.2); BASOPHILS % (AUTO) 0.9 % (0-2); EOSINOPHILS % (AUTO) 5.8 % (0-6); HEMATOCRIT 53.5 % (37.9-51.0); HEMOGLOBIN 17.9 g/dL (13.5-17.0); LYMPHOCYTES % (AUTO) 18.9 % (13-45); MEAN CORPUSCULAR HEMOGLOBIN 29.9 pg (27.0-33.4); MEAN CORPUSCULAR HGB CONC 33.5 g/dL (32.0-36.0); MEAN CORPUSCULAR VOLUME 89 fl (80-97); MONOCYTES % (AUTO) 4.8 % (3-13); PLATELET COUNT 245 10^3/uL (150-450); RED BLOOD COUNT 6.01 10^6/uL (4.35-5.55); RED CELL DISTRIBUTION WIDTH 14.6 % (11.5-14.0); SEGMENTED NEUTROPHILS % (AUTO) 69.6 % (42-78); TOTAL CELLS COUNTED % (AUTO) 100 %; WHITE BLOOD COUNT 11.7 10^3/uL (4.0-10.5)
[2018-01-03 15:14] LABS: INTERNATIONAL RATION (INR) 1.95; PROTHROMBIN TIME 23.2 SEC (11.4-15.4)
[2018-01-03 15:23] LABS: APPEARANCE,URINE SLIGHTLY-CLOUDY; BILIRUBIN,URINE NEGATIVE (NEGATIVE); GLUCOSE, URINE NEGATIVE (NEGATIVE); KETONES,URINE NEGATIVE (NEGATIVE); LEUKOCYTE ESTERASE,URINE MODERATE (NEGATIVE); NITRITE,URINE NEGATIVE (NEGATIVE); PROTEIN,URINE 100 mg/dL (NEGATIVE); URINE SPECIFIC GRAVITY 1.016; UROBILINOGEN,URINE NEGATIVE mg/dL (<2.0)
[2018-01-03 15:24] LABS: ALANINE AMINOTRANSFERASE 42 U/L (21-72); ALBUMIN 4.9 g/dL (3.5-5.0); ALKALINE PHOSPHATASE 175 U/L (38-126); ASPARTATE AMINO TRANSFERASE 30 U/L (17-59); BILIRUBIN,DIRECT 0.2 mg/dL (0.0-0.4); BILIRUBIN,TOTAL 0.5 mg/dL (0.2-1.3); BLOOD UREA NITROGEN 13 mg/dL (7-20); CALCIUM 10.3 mg/dL (8.4-10.2); CARBON DIOXIDE 25 mmol/L (22-30); CHLORIDE 105 mmol/L (98-107); GLUCOSE 198 mg/dL (75-110); POTASSIUM 4.2 mmol/L (3.6-5.0); TOTAL PROTEIN 7.2 g/dL (6.3-8.2)
[2018-01-03 15:25] LABS: COLOR,URINE RED
[2018-01-03 15:26] LABS: ANION GAP 14 (5-19); SODIUM 143.6 mmol/L (137-145)
[2018-01-03] MEDS ORDERED: LORAZEPAM 1 MG TABLET PO ONE (16:17)
[2018-01-03] MEDS ORDERED: PHENAZOPYRIDINE HCL 200 MG TABLET PO ONE (17:00)
[2018-01-03] MEDS ORDERED: SULFAMETHOXAZOLE/TRIMETHOPRIM 800-160 MG TABLET PO ONE (17:00)
--- NOTE | 2018-01-03 17:09 | RADIOLOGY REPORT (SQ) ---
EXAM DESCRIPTION: CT LTD RENAL STONE PROTOCOL ON COMPLETED DATE/TIME: 01/03/2018 4:52 pm REASON FOR STUDY: HEMATURIA, R. CVA PAIN COMPARISON: None. TECHNIQUE: CT scan of the abdomen and pelvis performed without intravenous or oral contrast. Images reviewed with lung, soft tissue, and bone windows. Reconstructed coronal and sagittal MPR images revi ewed. All images stored on PACS. All CT scanners at this facility use dose modulation, iterative reconstruction, and/or weight based d osing when appropriate to reduce radiation dose to as low as reasonably achievable (ALARA). 03/28/2017 . [facility]: Dose Right [facility]: CareDose [facility]: Dose Right [facility]: Teradose 4D [facility]: Smart [employer] RADIATION DOSE: CT Rad equipment meets quality standard of care and radiation dose reduction techniq ues were employed. CTDIvol: 10.6 mGy. DLP: 553 mGy-cm.mGy. LIMITATIONS: None. FINDINGS: LOWER CHEST: No significant findings. No nodules or infiltrates. NON-CONTRASTED LIVER, SPLEEN, ADRENALS: Evaluation limited by lack of IV contrast. No identified sign ificant masses. PANCREAS: No masses. No peripancreatic inflammatory changes. GALLBLADDER: 7 mm stone in the gallbladder neck. No inflammatory changes to suggest cholecystitis. RIGHT KIDNEY AND URETER: No suspicious masses. Assessment limited by lack of IV contrast. Calyceal calculi. 7 mm calculus at the ureteral pelvic junction. No hydronephrosis or hydroureter. LEFT KIDNEY AND URETER: Probable cortical cysts. No suspicious masses. Assessment limited by lack of IV contrast. Tiny calyceal calculi. No hydronephrosis or hydroureter. AORTA AND RETROPERITONEUM: No aneurysm. No retroperitoneal masses or adenopathy. BOWEL AND PERITONEAL CAVITY: No obvious masses or inflammatory changes. No free fluid. APPENDIX: Normal. PELVIS, BLADDER, AND ABDOMINAL WALL:No abnormal masses. No free fluid. Bladder normal. BONES: No significant findings. Degenerative changes in the spine, particularly at L5-S1. OTHER: No other significant finding. IMPRESSION: 1. CALYCEAL CALCULI IN BOTH KIDNEYS. 7 MM CALCULUS IN RIGHT RENAL PELVIS AT THE URETEROPELVIC JUNCTI ON. NO SIGNIFICANT HYDRONEPHROSIS. 2. PROBABLE CORTICAL CYSTS IN THE LEFT KIDNEY, UNCHANGED FROM THE PRIOR STUDY. 3. GALLSTONE. 4. NO OTHER SIGNIFICANT OR ACUTE PROCESS IN THE ABDOMEN OR PELVIS. COMMENT: Quality ID # [id number]: Final reports with documentation of one or more dose reduction techniques (e.g., Automated exposure control, adjustment of the mA and/or kV according to patient size, use of iterative reconstruction technique) TECHNICAL DOCUMENTATION: JOB ID: [id number] [employer]- All Rights Reserved Reading location - IP/workstation name: [email or web address]
[2018-01-03 20:16] VITALS: BP 132/94
== END 2018-01-03 18:00 | disposition home or self-care (01) ==
LOC: ER 14:15
DX: R31.0 Gross hematuria (principal); N20.2 Calculus of kidney with calculus of ureter; J45.909 Unspecified asthma, uncomplicated; I26.99 Other pulmonary embolism without acute cor pulmonale; Z79.01 Long term (current) use of anticoagulants; Z87.891 Personal history of nicotine dependence
CPT/HCPCS: 99284; 36415; 87086; 85025; 85610; 87088; 80053; 81001; 87186; 76380; A9270 ×3; J3490

== ENCOUNTER → 2018-03-26 | Outpatient (CLI) | payer MEDICARE ==
[2018-03-26 13:26] LABS: ABSOLUTE BASOPHILS # (AUTO) 0.1 10^3/uL (0.0-0.2); ABSOLUTE EOSINOPHILS # (AUTO) 0.6 10^3/uL (0.0-0.6); ABSOLUTE LYMPHOCYTES (AUTO) 2.1 10^3/uL (0.5-4.7); ABSOLUTE MONOCYTES (AUTO) 0.7 10^3/uL (0.1-1.4); ABSOLUTE NEUT (AUTO) 5.3 10^3/uL (1.7-8.2); BASOPHILS % (AUTO) 0.9 % (0-2); EOSINOPHILS % (AUTO) 7.2 % (0-6); HEMATOCRIT 50.8 % (37.9-51.0); HEMOGLOBIN 17.1 g/dL (13.5-17.0); LYMPHOCYTES % (AUTO) 23.6 % (13-45); MEAN CORPUSCULAR HEMOGLOBIN 29.9 pg (27.0-33.4); MEAN CORPUSCULAR HGB CONC 33.7 g/dL (32.0-36.0); MEAN CORPUSCULAR VOLUME 89 fl (80-97); PLATELET COUNT 212 10^3/uL (150-450); RED BLOOD COUNT 5.73 10^6/uL (4.35-5.55); RED CELL DISTRIBUTION WIDTH 14.8 % (11.5-14.0); SEGMENTED NEUTROPHILS % (AUTO) 60.3 % (42-78); TOTAL CELLS COUNTED % (AUTO) 100 %; WHITE BLOOD COUNT 8.7 10^3/uL (4.0-10.5)
[2018-03-26 13:36] LABS: ANION GAP 12 (5-19); BLOOD UREA NITROGEN 14 mg/dL (7-20); CALCIUM 9.6 mg/dL (8.4-10.2); CARBON DIOXIDE 27 mmol/L (22-30); CHLORIDE 106 mmol/L (98-107); GLUCOSE 119 mg/dL (75-110); POTASSIUM 4.1 mmol/L (3.6-5.0); SODIUM 145.1 mmol/L (137-145)
--- NOTE | 2018-03-27 00:24 | EKG REPORT ---
SEVERITY:- ABNORMAL ECG - SINUS RHYTHM ATRIAL PREMATURE COMPLEX RIGHT BUNDLE BRANCH BLOCK : Confirmed by: Janet Moreno MD 27-Mar-2018 00:23:20
== END ==
LOC: OD 12:18
PROVIDERS: ATTEND Urology
DX: Z01.818 Encounter for other preprocedural examination (principal); N20.0 Calculus of kidney
CPT/HCPCS: 36415; 80048; 85025; 87070; 93005; 93010

== ENCOUNTER 2019-01-15 09:17 | Emergency (ER) | payer MEDICARE ==
[2019-01-15] MEDS ORDERED: OXYCODONE-ACETAMINOPHEN 5-325 MG TABLET PO ONE (09:38)
--- NOTE | 2019-01-15 09:40 | ER Document Report ---
ED Medical Screen (RME) - General Chief Complaint: Fall Injury Stated Complaint: FALL/RIB PAIN Time Seen by Provider: 01/15/19 09:37 Primary Care Provider: FAMILIA ZABALA MD [Primary Care Provider] - Follow up as needed Mode of Arrival: Ambulatory Information source: Patient Notes: 73-year-old male presents to ED for increasing pain to his left lateral ribs after he fell on Thursday. He states he was sitting in a plastic chair on the wooden deck when the chair broke he fell landing on his left side and his head. He denies any pain in his head at this time. He refuses a CT of the head at this time. He is on aspirin. He has a history of hypothyroid high blood pressure cholesterol diabetes type 2 anxiety depression and PTSD. He states he cannot goes through a CT or MRI machine due to claustrophobia. He does smoke 1/2 pack a day and drinks on weekends. Lungs are diminished due to decreased inspiration. Patient states it hurts too much to take a deep breath. I have greeted and performed a rapid initial assessment of this patient. A comprehensive ED assessment and evaluation of the patient, analysis of test results and completion of medical decision making process will be conducted by an additional ED providers. TRAVEL OUTSIDE OF THE [place] IN LAST 30 DAYS: No - Related Data Allergies/Adverse Reactions: No Known Allergies Allergy (Verified 01/15/19 09:19) Past Medical History - Past Medical History Cardiac Medical History: Reports: Hx Hypercholesterolemia Pulmonary Medical History: Reports: Hx Asthma Endocrine Medical History: Reports: Hx Diabetes Mellitus Type 2 - borderline, Hx Hypothyroidism Renal/ Medical History: Reports: Hx Kidney Stones. Denies: Hx Peritoneal Dialysis Musculoskeltal Medical History: Reports Hx Arthritis - gout, Reports Hx Gout Psychiatric Medical History: Reports: Hx Depression Past Surgical History: Reports: Hx Orthopedic Surgery - Anterior cervical fusion, Hx Tonsillectomy - Immunizations Hx Diphtheria, Pertussis, Tetanus Vaccination: Yes History of Influenza Vaccine for 06/2017 - 11/2017 Season: Yes Physical Exam - Vital signs Vitals: Temp Pulse Resp BP Pulse Ox 98.1 F 74 18 144/92 H 98 01/15/19 09:30 01/15/19 09:30 01/15/19 09:30 01/15/19 09:30 01/15/19 09:30 Course - Vital Signs Vital signs: Temp Pulse Resp BP Pulse Ox 98.1 F 74 18 144/92 H 98 01/15/19 09:30 01/15/19 09:30 01/15/19 09:30 01/15/19 09:30 01/15/19 09:30 Doctor's Discharge - Discharge Referrals: FAMILIA ZABALA MD [Primary Care Provider] - Follow up as needed
--- NOTE | 2019-01-15 10:46 | RADIOLOGY REPORT (SQ) ---
EXAM DESCRIPTION: RIBS LEFT W/PA CHEST COMPLETED DATE/TIME: 01/15/2019 9:55 am REASON FOR STUDY: Fall Thursday left lateral rib pain COMPARISON: Chest and rib films 12/12/2017 TECHNIQUE: Frontal view of the chest and additional views of the left ribs acquired. NUMBER OF VIEWS: PA chest, left rib detail three views LIMITATIONS: None. FINDINGS: FRONTAL CXR: No pneumothorax. No pleural effusion. No atelectasis or infiltrates. RIBS: No displaced rib fractures. No lytic or blastic bony lesions. OTHER: No other significant finding. IMPRESSION: NO PNEUMOTHORAX. NO DISPLACED RIB FRACTURES. COMMENT: SITE OF TRAUMA/COMPLAINT MARKED/STAMP COMPLETED: No TECHNICAL DOCUMENTATION: JOB ID: [id number] [employer]- All Rights Reserved Reading location - IP/workstation name: [email or web address]
--- NOTE | 2019-01-15 11:19 | ER Document Report ---
ED Fall - General Chief Complaint: Fall Injury Stated Complaint: FALL/RIB PAIN Time Seen by Provider: 01/15/19 09:37 Primary Care Provider: FAMILIA ZABALA MD [Primary Care Provider] - Follow up as needed Mode of Arrival: Ambulatory Information source: Patient Notes: Patient is complaining of pain in the left lower posterior lateral rib region since falling from a chair Thursday. He says it was an old plastic chair and it broke as he sat in it causing him to fall flat on a wooden deck. His only injury is to the left lower rib region. Denies any head or neck injuries. No neurologic deficits. Does not feel short of breath. No abdominal pains. Has a chronic cough, likely because he is a cigarette smoker. Has not seen any blood in his sputum. No fevers. Denies history of COPD or asthma. Smokes 1/2 pack cigarettes a day. PMH: Gout, hypothyroid, NIDDM, high cholesterol. TRAVEL OUTSIDE OF THE [place] IN LAST 30 DAYS: No - Related data Allergies/Adverse Reactions: No Known Allergies Allergy (Verified 01/15/19 09:19) Past Medical History - General Information source: Patient - Social History Smoking Status: Current Every Day Smoker Chew tobacco use (# tins/day): No Frequency of alcohol use: Social Drug Abuse: None Family History: Reviewed & Not Pertinent Patient has suicidal ideation: No Patient has homicidal ideation: No - Past Medical History Cardiac Medical History: Reports: Hx Hypercholesterolemia Pulmonary Medical History: Reports: Hx Asthma Endocrine Medical History: Reports: Hx Diabetes Mellitus Type 2 - borderline, Hx Hypothyroidism Renal/ Medical History: Reports: Hx Kidney Stones Musculoskeletal Medical History: Reports Hx Arthritis - gout, Reports Hx Gout Psychiatric Medical History: Reports: Hx Depression Past Surgical History: Reports: Hx Orthopedic Surgery - Anterior cervical fusion, Hx Tonsillectomy - Immunizations Hx Diphtheria, Pertussis, Tetanus Vaccination: Yes Hx Pneumococcal Vaccination: 07/10/10 Review of Systems - Review of Systems Notes: REVIEW OF SYSTEMS: CONSTITUTIONAL : Denies fever. EENT: Denies eye, ear, nose or mouth or throat pain or other symptoms. CARDIOVASCULAR: See HPI. Pain in lower left posterior lateral ribs. RESPIRATORY: Denies any new or worsening cough, chest congestion, or shortness of breath. GASTROINTESTINAL: Denies abdominal pain or nausea, vomiting, or diarrhea. Not tender in the left upper quadrant. GENITOURINARY: Denies difficulty or painful urinating, urinary frequency, blood in urine. MUSCULOSKELETAL: Denies back or neck pain. Denies joint pain or swelling. SKIN: Denies rash or skin lesions. NEUROLOGICAL: Denies LOC or altered mental status. Denies headache. Denies sensory loss or motor deficits. ALL OTHER SYSTEMS REVIEWED AND NEGATIVE. Physical Exam - Vital signs Vitals: Temp Pulse Resp BP Pulse Ox 98.1 F 74 18 144/92 H 98 01/15/19 09:30 01/15/19 09:30 01/15/19 09:30 01/15/19 09:30 01/15/19 09:30 Interpretation: Normal Notes: PHYSICAL EXAMINATION: GENERAL: Well-appearing, in no acute distress. HEAD: Atraumatic, normocephalic. EYES: Pupils equal round and reactive to light, extraocular movements intact. ENT: oropharynx clear without exudates. Moist mucous membranes. NECK: Normal range of motion, supple. LUNGS: Breath sounds clear and equal bilaterally. Very tender to press in the area of the lower left posterior lateral ribs. HEART: Regular rate and rhythm without murmurs. ABDOMEN: Soft, nontender. No guarding or rebound. No masses. No left upper quadrant tenderness. BACK: No tenderness throughout entire back. EXTREMITIES: Normal range of motion without pain. NEUROLOGICAL: Normal speech, normal gait. Normal sensory, motor, and reflex exams. Awake, alert, and oriented x3. Cranial nerves normal. PSYCH: Normal mood, normal affect. SKIN: Warm, dry, no rashes. Course - Re-evaluation Re-evalutation: 01/15/19 19:08 Patient was provided with a rib belt as it likely to give him some relief of his pain when he is coughing and I do not think he is at risk for developing phlegm collection and pneumonia. - Vital Signs Vital signs: Temp Pulse Resp BP Pulse Ox 97.8 F 67 16 134/90 H 97 01/15/19 11:25 01/15/19 11:25 01/15/19 11:25 01/15/19 11:25 01/15/19 11:25 Discharge - Discharge Clinical Impression: Contusion of rib on left side Condition: Stable Disposition: HOME, SELF-CARE Additional Instructions: Rib Contusion You have been diagnosed as having bruised ribs. It will usually take a few weeks for these injured ribs to heal. You should cough or take a deep breath at least every hour or two to prevent lung complications. You should not engage in any strenuous physical activity until released by your physician. The usual rule is "if it hurts, don't do it." Return if you develop any of the following: (1) Fever or chills. (2) Persistent cough, coughing up blood, or shortness of breath. (3) Increasing pain. (4) Weakness, lightheadedness, or fainting. We did not see any evidence of rib fractures on her x-rays. However, subtle cracks in the rib surface can be missed on plain x-rays. Still, such cracks and ribs can cause significant pain, especially when coughing or taking a deep breath. You are being provided with a rib belt to help with your pain when you are coughing or taking a deep breath. If you find it helpful, wear it as needed. If it does not help, you do not need to wear it. You must take deep breaths periodically to keep your lungs expanding. You must also cough and clear out secretions and phlegm. Mucus which is not coughed up, can pull in the lungs and cause pneumonia. Oral Narcotic Medication You have been given a prescription for pain control. This medication is a narcotic. It's best taken with food, as nausea can result if taken on an empty stomach. Don't operate machinery or drive within six hours of taking this medication. Do not combine this medicine with alcohol, or with any medication which can cause sedation (such as cold tablets or sleeping pills) unless you get permission from the physician. Narcotics tend to cause constipation. If possible, drink plenty of fluids and eat a diet high in fiber and fruits. Stop Smoking You should stop smoking. The tar and chemicals in cigarette smoke are harmful. Smoking has been shown to cause: Emphysema and chronic bronchitis Lung cancer Cancer of the mouth, larynx, stomach, and pancreas Heart disease and stroke Stillbirths and miscarriage Premature aging In addition, smoking increases the chances of respiratory infections and ear infections in children of smokers, and increases the risk of cancer in persons exposed to second-hand smoke. Classes are available to help you stop smoking. If you are serious about wanting to quit, we can help arrange this therapy for you, or you can contact the local lung or cancer association. FOLLOW-UP CARE: If you have been referred to a physician for follow-up care, call the physicians office for an appointment as you were instructed or within the next two days. If you experience worsening or a significant change in your symptoms, notify the physician immediately or return to the Emergency Department at any time for re-evaluation. Return if you develop worsening pain, very congested coughing, and especially if you have fevers. Prescriptions: Oxycodone HCl/Acetaminophen [Percocet 5-325 mg Tablet] 1 tab PO Q4HP PRN #12 tab let PRN Reason: Referrals: FAMILIA ZABALA MD [Primary Care Provider] - Follow up as needed
[2019-01-15 11:31] VITALS: BP 134/90
== END 2019-01-15 11:31 | disposition home or self-care (01) ==
LOC: ER 09:17
DX: S20.212A Contusion of left front wall of thorax, initial encounter (principal); R07.81 Pleurodynia; W07.XXXA Fall from chair, initial encounter; F17.210 Nicotine dependence, cigarettes, uncomplicated; E78.00 Pure hypercholesterolemia, unspecified; E11.9 Type 2 diabetes mellitus without complications; E03.9 Hypothyroidism, unspecified; Z87.442 Personal history of urinary calculi; Z98.1 Arthrodesis status
CPT/HCPCS: 99283; 71101; A9270

== ENCOUNTER 2019-04-22 09:46 | Emergency (ER) | payer MEDICARE ==
[2019-04-22 09:58] VITALS: BP 171/97
--- NOTE | 2019-04-22 10:53 | ER Document Report ---
ED Medical Screen (RME) - General Chief Complaint: Anxiety Stated Complaint: PANIC ATTACK Time Seen by Provider: 04/22/19 10:28 Primary Care Provider: FAMILIA ZABALA MD [Primary Care Provider] - Follow up as needed Notes: Patient is a 73-year-old male presents to the emergency department for what he feels like is a panic attack. Patient states he feels as though he cannot take a deep breath and also cannot lie flat. Patient appears very angry with staff and will only answer limited questions. Patient's does most of the talking. Patient is also complaining of chronic lower back pain. Patient states he was seeing pain management "years ago." Patient voices concern that pain management could not do anything for him. Patient also voices that pain management flushed all of his pain medication down the toilet. Patient does have a history of a pulmonary embolus. GENERAL: Alert, interacts well. No acute distress. LUNGS: Diminished to auscultation bilateral bases. Although patient's will not take a deep breath even when instructed. PSYCH: Flat affect, angry mood. I have greeted and performed a rapid initial assessment of this patient. A comprehensive ED assessment and evaluation of the patient, analysis of test results and completion of the medical decision making process will be conducted by additional ED providers. I have specifically instructed the patient or family members with the patient to immediately return to any nursing staff should anything change in the patient's condition or with their chief complaint. This medical record was dictated with voice recognizing software. There may be grammatical, syntax errors that are unintended. TRAVEL OUTSIDE OF THE [place] IN LAST 30 DAYS: No - Related Data Allergies/Adverse Reactions: No Known Allergies Allergy (Verified 04/22/19 10:17) Home Medications: multivitamin. aspirin 81mg. fish oil 1000mg. sertraline 50mg BID. allopurinol 100mg daily. rosuvastain 10mg daily. metformin 500mg. levothyroxin 75mg Past Medical History - Social History Frequency of alcohol use: Occasional Drug Abuse: None - Past Medical History Cardiac Medical History: Reports: Hx Hypercholesterolemia Pulmonary Medical History: Reports: Hx Asthma Endocrine Medical History: Reports: Hx Diabetes Mellitus Type 2 - borderline, Hx Hypothyroidism Renal/ Medical History: Reports: Hx Kidney Stones. Denies: Hx Peritoneal Dialysis Musculoskeltal Medical History: Reports Hx Arthritis - gout, Reports Hx Gout Psychiatric Medical History: Reports: Hx Depression Past Surgical History: Reports: Hx Orthopedic Surgery - Anterior cervical fusion, Hx Tonsillectomy - Immunizations Hx Diphtheria, Pertussis, Tetanus Vaccination: Yes History of Influenza Vaccine for 06/2017 - 11/2017 Season: Yes Physical Exam - Vital signs Vitals: Temp Pulse Resp BP Pulse Ox 98.4 F 91 20 171/97 H 95 04/22/19 09:57 04/22/19 09:57 04/22/19 09:57 04/22/19 09:57 04/22/19 09:57 Course - Vital Signs Vital signs: Temp Pulse Resp BP Pulse Ox 98.4 F 91 20 171/97 H 95 04/22/19 09:57 04/22/19 09:57 04/22/19 09:57 04/22/19 09:57 04/22/19 09:57 Doctor's Discharge - Discharge Referrals: FAMILIA ZABALA MD [Primary Care Provider] - Follow up as needed
--- NOTE | 2019-04-22 11:43 | RADIOLOGY REPORT (SQ) ---
EXAM DESCRIPTION: CHEST 2 VIEWS COMPLETED DATE/TIME: 04/22/2019 11:24 am REASON FOR STUDY: SOB COMPARISON: 07/29/2017 EXAM PARAMETERS: NUMBER OF VIEWS: two views TECHNIQUE: Digital Frontal and Lateral radiographic views of the chest acquired. RADIATION DOSE: NA LIMITATIONS: none FINDINGS: LUNGS AND PLEURA: No opacities, masses or pneumothorax. No pleural effusion. MEDIASTINUM AND HILAR STRUCTURES: No masses or contour abnormalities. HEART AND VASCULAR STRUCTURES: Heart normal size. No evidence for failure. BONES: No acute findings. HARDWARE: None in the chest. OTHER: No other significant finding. IMPRESSION: No acute abnormality of the lungs. TECHNICAL DOCUMENTATION: JOB ID: [id number] [employer]- All Rights Reserved Reading location - IP/workstation name: [email or web address]
[2019-04-22 12:04] LABS: ABSOLUTE EOSINOPHILS # (AUTO) 0.3 10^3/uL (0.0-0.6); ABSOLUTE LYMPHOCYTES (AUTO) 1.7 10^3/uL (0.5-4.7); ABSOLUTE MONOCYTES (AUTO) 0.6 10^3/uL (0.1-1.4); ABSOLUTE NEUT (AUTO) 3.7 10^3/uL (1.7-8.2); BASOPHILS % (AUTO) 0.7 % (0-2); EOSINOPHILS % (AUTO) 5.4 % (0-6); HEMATOCRIT 47.8 % (37.9-51.0); LYMPHOCYTES % (AUTO) 26.2 % (13-45); MEAN CORPUSCULAR HEMOGLOBIN 30.8 pg (27.0-33.4); MEAN CORPUSCULAR HGB CONC 33.5 g/dL (32.0-36.0); MEAN CORPUSCULAR VOLUME 92 fl (80-97); MONOCYTES % (AUTO) 9.9 % (3-13); PLATELET COUNT 167 10^3/uL (150-450); RED CELL DISTRIBUTION WIDTH 13.8 % (11.5-14.0); SEGMENTED NEUTROPHILS % (AUTO) 57.8 % (42-78); TOTAL CELLS COUNTED % (AUTO) 100 %; WHITE BLOOD COUNT 6.4 10^3/uL (4.0-10.5)
[2019-04-22 12:09] LABS: APPEARANCE,URINE CLEAR; BILIRUBIN,URINE NEGATIVE (NEGATIVE); COLOR,URINE YELLOW; GLUCOSE, URINE >=500 mg/dL (NEGATIVE); KETONES,URINE NEGATIVE (NEGATIVE); LEUKOCYTE ESTERASE,URINE NEGATIVE (NEGATIVE); NITRITE,URINE NEGATIVE (NEGATIVE); PROTEIN,URINE NEGATIVE (NEGATIVE); URINE SPECIFIC GRAVITY 1.012; UROBILINOGEN,URINE NEGATIVE mg/dL (<2.0)
[2019-04-22 12:10] LABS: PROTHROMBIN TIME 13.2 SEC (11.4-15.4)
[2019-04-22 12:11] LABS: PARTIAL THROMBOPLASTIN TIME 24.5 SEC (23.5-35.8)
[2019-04-22 12:13] LABS: D-DIMER 0.48 ug/mL (0.00-0.50)
[2019-04-22 12:22] LABS: ALANINE AMINOTRANSFERASE 30 U/L (21-72); ALBUMIN 4.4 g/dL (3.5-5.0); ALKALINE PHOSPHATASE 128 U/L (38-126); ANION GAP 7 (5-19); ASPARTATE AMINO TRANSFERASE 26 U/L (17-59); BILIRUBIN,DIRECT 0.3 mg/dL (0.0-0.4); BILIRUBIN,TOTAL 0.5 mg/dL (0.2-1.3); BLOOD UREA NITROGEN 12 mg/dL (7-20); CALCIUM 9.4 mg/dL (8.4-10.2); CARBON DIOXIDE 31 mmol/L (22-30); CHLORIDE 104 mmol/L (98-107); GLUCOSE 207 mg/dL (75-110); POTASSIUM 4.1 mmol/L (3.6-5.0); TOTAL PROTEIN 6.8 g/dL (6.3-8.2)
[2019-04-22 12:34] LABS: NT PRO BNP 155 pg/mL (5-900)
[2019-04-22 12:36] LABS: TROPONIN I < 0.012 ng/mL
--- NOTE | 2019-04-22 13:57 | ER Document Report ---
ED General - General Chief Complaint: Anxiety Stated Complaint: PANIC ATTACK Time Seen by Provider: 04/22/19 10:28 Primary Care Provider: FAMILIA ZABALA MD [NO LOCAL MD] - Follow up as needed TRAVEL OUTSIDE OF THE [place] IN LAST 30 DAYS: No - HPI Notes: Patient is a 73-year-old gentleman with a history of diabetes, PE, and PTSD, who presents emergency department for evaluation of anxiety. He states over the last 4 days he can stop pacing. He states that he paces it hurts his lower back, and he has to take more pain medication. He just feels more anxious. He believes he is having an anxiety attack. He denies any suicidal or homicidal ideation. No visual or auditory hallucination. He states he has been taking his medications as prescribed. He states he just feels like he cannot take a deep breath. He denies any pain out of the ordinary, states he does have lower back pain. It does not radiate. He denies any bowel or bladder incontinence, no saddle anesthesia, no focal numbness or weakness. He called an appointment with his primary care physician and could not get in until the first week of April, so he presents to the ED for further evaluation. - Related Data Allergies/Adverse Reactions: No Known Allergies Allergy (Verified 04/22/19 10:17) Home Medications: multivitamin. aspirin 81mg. fish oil 1000mg. sertraline 50mg BID. allopurinol 100mg daily. rosuvastain 10mg daily. metformin 500mg. levothyroxin 75mg Past Medical History - General Information source: Patient, Parent - Social History Smoking Status: Current Every Day Smoker Frequency of alcohol use: Occasional Drug Abuse: None Family History: Reviewed & Not Pertinent Patient has suicidal ideation: No Patient has homicidal ideation: No - Past Medical History Cardiac Medical History: Reports: Hx Hypercholesterolemia, Hx Pulmonary Embolism Pulmonary Medical History: Reports: Hx Asthma Endocrine Medical History: Reports: Hx Diabetes Mellitus Type 2 - borderline, Hx Hypothyroidism Renal/ Medical History: Reports: Hx Kidney Stones. Denies: Hx Peritoneal Dialysis Musculoskeletal Medical History: Reports Hx Arthritis - gout, Reports Hx Gout Psychiatric Medical History: Reports: Hx Anxiety, Hx Depression, Hx Post Traumatic Stress Disorder Past Surgical History: Reports: Hx Orthopedic Surgery - Anterior cervical fusion, Hx Tonsillectomy - Immunizations Hx Diphtheria, Pertussis, Tetanus Vaccination: Yes Hx Pneumococcal Vaccination: 07/10/10 Review of Systems - Review of Systems Constitutional: No symptoms reported EENT: No symptoms reported Cardiovascular: No symptoms reported Respiratory: See HPI Gastrointestinal: No symptoms reported Genitourinary: No symptoms reported Musculoskeletal: No symptoms reported Skin: No symptoms reported Physical Exam - Vital signs Vitals: Temp Pulse Resp BP Pulse Ox 98.4 F 91 20 171/97 H 95 04/22/19 09:57 04/22/19 09:57 04/22/19 09:57 04/22/19 09:57 04/22/19 09:57 - Notes Notes: This is a very anxious appearing, aggressive in affect, 73-year-old male. He is pacing around the room. He seems very annoyed, is short and responses with both me and his . Vital signs reviewed, please refer to chart. Head is normocephalic, atraumatic. Pupils equal round, reactive to light. Neck is supple without meningismus. Heart is regular rate and rhythm. Lungs are clear to auscultation bilaterally. Abdomen is soft, nontender, normoactive bowel sounds throughout. Extremities without cyanosis, clubbing. Posterior calves are nontender. Peripheral pulses are equal. Skin is warm and dry. Patient is awake, alert, neurological exam is nonfocal. Course - Re-evaluation Re-evalutation: 04/22/19 14:03 Patient presents emergency department for evaluation of increased anxiety. His physical exam is consistent with that. His laboratory investigations reveal mild hyperglycemia but otherwise are unremarkable. The patient shows me his medication list. He has actually only been taking his Zoloft once daily. He has been to be taking it twice daily. He was told to rectify this at home. I talked to the patient about my concerns about the possible use of benzodiazepines. He is 73, he is on chronic pain medications. I do not feel comfortable with the idea of sending the patient home with anything like this. I did offer to treat him here with a short acting benzodiazepine to see if that helped. He states he is "paranoid of medicine" and refused that. I did offer psychiatric consultation for possible medical management outside of benzodiazepines. He states "I do not believe in that" and refuse psychiatric consultation. I explained to the patient that I could not find a clear medical reason for his symptoms. His d-dimer was negative. His heart rate is in the 70s. He is oxygenating well. He certainly seems to be breathing without any apparent difficulty. The patient refused any of the interventions I had to offer. I did go ahead discharge the patient. He is to follow-up with his primary care provider soon as possible. If he changes his mind regarding psychiatric evaluation he certainly should return, or if his breathing becomes any worse. He voiced understanding to this and was discharged. - Vital Signs Vital signs: Temp Pulse Resp BP Pulse Ox 98.4 F 91 18 171/97 H 100 04/22/19 09:57 04/22/19 09:57 04/22/19 13:00 04/22/19 09:57 04/22/19 13:00 - Laboratory Result Diagrams: 04/22/19 11:50 04/22/19 11:50 Laboratory results interpreted by me: 04/22/19 04/22/19 11:50 11:50 Carbon Dioxide 31 H Glucose 207 H Alkaline Phosphatase 128 H Urine Glucose (UA) >=500 H - Diagnostic Test Radiology reviewed: Reports reviewed Radiology results interpreted by me: 04/22/19 14:02 Chest X-Ray 04/22/19 10:40 IMPRESSION: No acute abnormality of the lungs. - EKG Interpretation by Me Additional EKG results interpreted by me: 04/22/19 14:02 Sinus mechanism with a rate of 77 bpm. Left axis deviation. Right bundle branch block. No no old studies available for comparison Discharge - Discharge Clinical Impression: Panic attack, Anxiety Condition: Stable Disposition: HOME, SELF-CARE Instructions: Anxiety ([facility]) Additional Instructions: You have elected not to receive any sort of medication here today, and declined psychiatric evaluation for possible medication interventions. Please take your Zoloft twice daily as has been recommended in the past. Follow-up with primary care provider as soon as possible. Return to the emergency department with worsening or new concerning symptoms. Referrals: FAMILIA ZABALA MD [NO LOCAL MD] - Follow up as needed
--- NOTE | 2019-04-22 23:17 | EKG REPORT ---
SEVERITY:- ABNORMAL ECG - SINUS RHYTHM RIGHT BUNDLE BRANCH BLOCK : Confirmed by: Peyman Portillo 22-Apr-2019 23:16:56
== END 2019-04-22 14:08 | disposition home or self-care (01) ==
LOC: ER 09:46
DX: F41.0 Panic disorder [episodic paroxysmal anxiety] (principal); F41.9 Anxiety disorder, unspecified; E11.9 Type 2 diabetes mellitus without complications; Z79.82 Long term (current) use of aspirin; Z79.84 Long term (current) use of oral hypoglycemic drugs; Z79.899 Other long term (current) drug therapy; J45.909 Unspecified asthma, uncomplicated
CPT/HCPCS: 36415; 71046; 80053; 81001; 83880; 84484; 85025; 85379; 85610; 85730; 93005; 93010; 99284

== ENCOUNTER 2020-03-15 06:50 | Emergency (ER) | payer MEDICARE ==
[2020-03-15] MEDS ORDERED: ACETAMINOPHEN 325 MG TABLET PO ONE (07:01)
[2020-03-15] MEDS ORDERED: OXYCODONE HCL IR 5 MG TABLET PO ONE (08:49)
[2020-03-15] MEDS ORDERED: COLCHICINE 0.6 MG TABLET PO ONE (08:49)
--- NOTE | 2020-03-15 09:44 | ER Document Report ---
ED General - General Chief Complaint: Foot Pain Stated Complaint: LEFT FOOT PAIN Time Seen by Provider: 03/15/20 08:11 Primary Care Provider: NAA TILLEY MD [Primary Care Provider] - Follow up as needed TRAVEL OUTSIDE OF THE [place] IN LAST 30 DAYS: No - HPI Notes: Chief complaint: Recurrent gout History of present illness: 74-year-old male with longstanding history of gout is experiencing a flare of pain and swelling left MCP joint hallux. Patient continues to take allopurinol. He has not recently been on a steroid. He was previously on colchicine and had a narcotic analgesic for supplemental use but does not currently have either these medicines. He denies any new trauma. - Related Data Allergies/Adverse Reactions: No Known Allergies Allergy (Verified 03/15/20 06:56) Past Medical History - General Information source: Patient, [facility] Records - Social History Smoking Status: Current Every Day Smoker Frequency of alcohol use: Social Drug Abuse: None Family History: Reviewed & Not Pertinent Patient has homicidal ideation: No - Past Medical History Cardiac Medical History: Reports: Hx Hypercholesterolemia, Hx Pulmonary Embolism Pulmonary Medical History: Reports: Hx Asthma Endocrine Medical History: Reports: Hx Diabetes Mellitus Type 2 - borderline, Hx Hypothyroidism Renal/ Medical History: Reports: Hx Kidney Stones. Denies: Hx Peritoneal Dialysis Musculoskeletal Medical History: Reports Hx Arthritis - gout, Reports Hx Gout Psychiatric Medical History: Reports: Hx Anxiety, Hx Depression, Hx Post Traumatic Stress Disorder Past Surgical History: Reports: Hx Orthopedic Surgery - Anterior cervical fusion, Hx Tonsillectomy - Immunizations Hx Diphtheria, Pertussis, Tetanus Vaccination: Yes Hx Pneumococcal Vaccination: 07/10/10 Review of Systems - Review of Systems Notes: Constitutional: Negative for fever. HENT: Negative for sore throat. Eyes: Negative for visual changes. Cardiovascular: Negative for chest pain. Respiratory: Negative for shortness of breath. Gastrointestinal: Negative for abdominal pain, vomiting or diarrhea. Genitourinary: Negative for dysuria. Musculoskeletal: As per HPI. Skin: Negative for rash. Neurological: Negative for headaches, weakness or numbness. 10 point ROS negative except as marked above and in HPI. Physical Exam - Vital signs Vitals: Temp 98.2 F 03/15/20 06:56 - Notes Notes: GENERAL: Well-developed well-nourished appearing in no acute distress. SKIN: Good turgor no rashes. HEAD: Normocephalic atraumatic. EYES: PERRLA. EOMI. Conjunctivae and sclerae clear. EARS: CANALS AND TMS CLEAR. NOSE: CLEAR. MOUTH: Moist mucosa. Good dentition. No stridor or edema. No drooling. NECK: Supple. No masses or thyromegaly. No adenopathy. Carotids 2+ without bruits. No JVD. BACK: Symmetrical without tenderness. CHEST: Respirations unlabored. Breath sounds clear and symmetrical. HEART: Regular rhythm. No murmur gallop or rub. ABDOMEN: Soft nontender without masses, organomegaly or rebound. Bowel sounds normally active. No bruits. GENITALIA: Deferred. EXTREMITIES: Swelling redness and exquisite tenderness of left first MTP joint. The joint is warm. No edema. No calf tenderness. Cap refill less than 1.5 seconds. Dorsalis pedis and posterior tibial pulses 3+ and symmetrical. NEUROLOGICAL: GCS 15. Alert and oriented x3. Normal gait. Fluent speech. Cranial nerves II through XII intact. Sensorimotor and cerebellar normal. Normal tone. PSYCHIATRIC: Appropriate affect. Course - Re-evaluation Re-evalutation: 03/15/20 09:44 Patient appears to have an acute gout flare. I have given him some oxycodone here. He is also received a dose of colchicine. I am going to send him out with resumption of colchicine and a brief course of oral prednisone. He will remain on allopurinol. He is to follow-up with primary care physician. I talked with him at some length about the pathophysiology and management of gout. Findings, clinical impression and plan of treatment have been discussed with patient/family. Understanding of current findings and recommendations has been acknowledged by them and there is agreement regarding disposition and follow-up. - Vital Signs Vital signs: Temp Pulse Resp BP Pulse Ox 98.2 F 03/15/20 06:56 Discharge - Discharge Clinical Impression: Acute gout left hallux Condition: Stable Disposition: HOME, SELF-CARE Additional Instructions: Gout You have been diagnosed as having gout. Gout is a problem caused by an excess of uric acid, a natural chemical found in the body. The cause of this disease is unknown. Gout arthritis occurs when crystals of uric acid form in the joints. The big toe is the most common joint involved, but any joint can become affected. Persons with gout may also form uric acid kidney stones, resulting in flank pain and blood in the urine. Nodules of uric acid may form under the skin. The first step of treatment is to decrease the inflammation in the joint with antiinflammatory medication. Medication to lower the uric acid level in the blood may then be prescribed. This medication should be taken regularly, as any sudden change in dosage may provoke an attack of gout. Some foods, such as red meat, can provoke an attack in some gout sufferers. Call the doctor if new symptoms arise, or if you do not improve. Elevate foot and apply ice packs. Follow-up with your physician within the next 1 week. Take prescribed medications as directed. Prescriptions: Colchicine 0.6 mg PO BID 30 Days #60 capsule Prednisone [Deltasone 20 mg Tablet] 2 tab PO DAILY 5 Days tablet Oxycodone HCl/Acetaminophen [Percocet 5-325 mg Tablet] 1 - 2 tab PO Q4H PRN #15 tablet PRN Reason: Referrals: ANA TILLEY MD [Primary Care Provider] - Follow up as needed
== END 2020-03-15 09:56 | disposition home or self-care (01) ==
LOC: ER 06:50
DX: M10.9 Gout, unspecified (principal); M79.672 Pain in left foot; F17.200 Nicotine dependence, unspecified, uncomplicated; J45.909 Unspecified asthma, uncomplicated; E11.9 Type 2 diabetes mellitus without complications
CPT/HCPCS: 99283; A9270 ×3

== ENCOUNTER 2020-09-15 17:10 | Emergency (ER) | payer MEDICARE ==
--- NOTE | 2020-09-15 17:51 | ER Document Report ---
ED Medical Screen (RME) - General Chief Complaint: Fever Stated Complaint: FEVER Time Seen by Provider: 09/15/20 17:48 Primary Care Provider: ANA TILLEY MD [Primary Care Provider] - Follow up as needed Mode of Arrival: Ambulatory Information source: Patient Notes: Patient is a 75-year-old male comes emergency room complaining of having a fever. Patient states about 4 PM today he started having chills his took his temperature and it was 102.0. She gave him Advil. He states he has also got achiness across the upper shoulders. He denies any shortness of breath or chest pain. States he has only history of insulin-dependent diabetes but denies any heart problems in the past. On original triage patient's heart rate was 130 documented but again patient denied any shortness of breath or chest pain. Patient denies any known contacts with coronavirus positive individuals. Patient is a well-nourished well-developed 75-year-old male no apparent distress and is ambulatory on his own. Cardiac: Patient originally on triage had a heart rate of 131 bpm. Reevaluation in the triage room with the nurse on pulse ox that showed it to be variable at 815 to 121 bpm. His saturations stayed in maintained 96%. Lungs: Patient displays bilateral breath sounds decreased throughout no rhonchi rales or wheeze are heard. Abdomen: Bowel sounds present 4 quads nontender to palpate. I have greeted and performed a rapid initial assessment of this patient. A comprehensive ED assessment and evaluation of the patient, analysis of test results and completion of the medical decision making process will be conducted by additional ED providers. Dictation of this chart was performed using voice recognition software; therefore, there may be some unintended grammatical errors. TRAVEL OUTSIDE OF THE [place] IN LAST 30 DAYS: No - Related Data Allergies/Adverse Reactions: No Known Allergies Allergy (Verified 09/15/20 17:46) Past Medical History - Past Medical History Cardiac Medical History: Reports: Hx Hypercholesterolemia, Hx Pulmonary Embolism Pulmonary Medical History: Reports: Hx Asthma Endocrine Medical History: Reports: Hx Diabetes Mellitus Type 2 - borderline, Hx Hypothyroidism Renal/ Medical History: Reports: Hx Kidney Stones. Denies: Hx Peritoneal Dialysis Musculoskeltal Medical History: Reports Hx Arthritis - gout, Reports Hx Gout Psychiatric Medical History: Reports: Hx Anxiety, Hx Depression, Hx Post Traumatic Stress Disorder Past Surgical History: Reports: Hx Orthopedic Surgery - Anterior cervical fusion, Hx Tonsillectomy - Immunizations Hx Diphtheria, Pertussis, Tetanus Vaccination: Yes Physical Exam - Vital signs Vitals: Temp Pulse Resp BP Pulse Ox 99.7 F 131 H 20 178/96 H 96 09/15/20 17:18 09/15/20 17:18 09/15/20 17:18 09/15/20 17:18 09/15/20 17:18 Course - Vital Signs Vital signs: Temp Pulse Resp BP Pulse Ox 99.7 F 131 H 20 178/96 H 96 09/15/20 17:18 09/15/20 17:18 09/15/20 17:18 09/15/20 17:18 09/15/20 17:18 Doctor's Discharge - Discharge Referrals: ANA TILLEY MD [Primary Care Provider] - Follow up as needed
[2020-09-15] MEDS ORDERED: NORMAL SALINE 1000 ML 1,000 ML IV ONE ×2 (17:53→21:09)
[2020-09-15 18:20] LABS: ABSOLUTE EOSINOPHILS # (AUTO) 0.1 10^3/uL (0.0-0.6); ABSOLUTE MONOCYTES (AUTO) 0.8 10^3/uL (0.1-1.4); ABSOLUTE NEUT (AUTO) 8.9 10^3/uL (1.7-8.2); BASOPHILS % (AUTO) 0.4 % (0-2); EOSINOPHILS % (AUTO) 1.2 % (0-6); HEMATOCRIT 53.1 % (37.9-51.0); HEMOGLOBIN 17.6 g/dL (13.5-17.0); LYMPHOCYTES % (AUTO) 16.9 % (13-45); MEAN CORPUSCULAR HEMOGLOBIN 29.8 pg (27.0-33.4); MEAN CORPUSCULAR HGB CONC 33.1 g/dL (32.0-36.0); MEAN CORPUSCULAR VOLUME 90 fl (80-97); MONOCYTES % (AUTO) 6.4 % (3-13); PLATELET COUNT 224 10^3/uL (150-450); RED CELL DISTRIBUTION WIDTH 15.3 % (11.5-14.0); SEGMENTED NEUTROPHILS % (AUTO) 75.1 % (42-78); TOTAL CELLS COUNTED % (AUTO) 100 %; WHITE BLOOD COUNT 11.9 10^3/uL (4.0-10.5)
--- NOTE | 2020-09-15 18:24 | RADIOLOGY REPORT (SQ) ---
EXAM DESCRIPTION: CHEST SINGLE VIEW IMAGES COMPLETED DATE/TIME: 09/15/2020 6:12 pm REASON FOR STUDY: fever COMPARISON: 04/22/2019. EXAM PARAMETERS: NUMBER OF VIEWS: One view. TECHNIQUE: Single frontal radiographic view of the chest acquired. RADIATION DOSE: NA LIMITATIONS: None. FINDINGS: LUNGS AND PLEURA: No opacities, masses or pneumothorax. No pleural effusion. MEDIASTINUM AND HILAR STRUCTURES: No masses. Contour normal. HEART AND VASCULAR STRUCTURES: Heart normal in size. Normal vasculature. BONES: No acute findings. HARDWARE: None in the chest. OTHER: No other significant finding. IMPRESSION: NO ACUTE RADIOGRAPHIC FINDING IN THE CHEST. TECHNICAL DOCUMENTATION: JOB ID: [id number] 2010 [employer]- All Rights Reserved Reading location - IP/workstation name: [email or web address]
[2020-09-15 18:27] LABS: APPEARANCE,URINE SLIGHTLY-CLOUDY; BILIRUBIN,URINE NEGATIVE (NEGATIVE); COLOR,URINE AMBER; GLUCOSE, URINE NEGATIVE (NEGATIVE); KETONES,URINE NEGATIVE (NEGATIVE); LEUKOCYTE ESTERASE,URINE MODERATE (NEGATIVE); NITRITE,URINE NEGATIVE (NEGATIVE); PROTEIN,URINE 100 mg/dL (NEGATIVE); URINE SPECIFIC GRAVITY 1.024
[2020-09-15 18:37] LABS: ALBUMIN 4.9 g/dL (3.5-5.0); ALKALINE PHOSPHATASE 179 U/L (38-126); ANION GAP 11 (5-19); ASPARTATE AMINO TRANSFERASE 32 U/L (17-59); BILIRUBIN,DIRECT 0.2 mg/dL (0.0-0.4); BILIRUBIN,TOTAL 0.6 mg/dL (0.2-1.3); BLOOD UREA NITROGEN 15 mg/dL (7-20); CALCIUM 10.3 mg/dL (8.4-10.2); CARBON DIOXIDE 27 mmol/L (22-30); CHLORIDE 106 mmol/L (98-107); GLUCOSE 143 mg/dL (75-110); POTASSIUM 4.4 mmol/L (3.6-5.0)
[2020-09-15] MEDS ORDERED: LEVOFLOXACIN 500 MG/D5W RTU 500 MG/100 ML RTUPB IV ONE (21:08)
[2020-09-15] MEDS ORDERED: ACETAMINOPHEN 325 MG TABLET PO ONE (21:08)
--- NOTE | 2020-09-15 21:20 | ER Document Report ---
ED General - General Chief Complaint: Back Pain Stated Complaint: FEVER Time Seen by Provider: 09/15/20 17:48 Primary Care Provider: ANA TILLEY MD [Primary Care Provider] - Follow up as needed Mode of Arrival: Ambulatory TRAVEL OUTSIDE OF THE [place] IN LAST 30 DAYS: No - HPI Notes: Patient is a 75-year-old male who presents emergency department for evaluation. He woke up this morning at 5 AM with shaking chills. He was noted to have a fever of 102 during the day today. He states that he has some increased pain in the back of his neck, but this is always there secondary to hardware that he had placed. He complained of some left ear pain to his earlier today, but states that that was just momentary. He denies any nasal congestion. No sore throat. No anosmia or difficulty with sense of taste. He has a chronic cough states is really not worse than normal. He denies any shortness of breath. No nausea or vomiting. No diarrhea. He does have some urinary urgency which is new today. No cuts or rashes. - Related Data Allergies/Adverse Reactions: No Known Allergies Allergy (Verified 09/15/20 17:46) Home Medications: Multivitamin, aspirin, fish oil, sertraline, allopurinol, rosuvastatin, Synthroid, Toujeo, pantoprazole, Coolin, colchicine, Atrovent, Flovent Past Medical History - General Information source: Patient, Relative - Social History Smoking Status: Current Every Day Smoker Family History: Reviewed & Not Pertinent - Past Medical History Cardiac Medical History: Reports: Hx Hypercholesterolemia, Hx Pulmonary Embolism Pulmonary Medical History: Reports: Hx Asthma Endocrine Medical History: Reports: Hx Diabetes Mellitus Type 2 - borderline, Hx Hypothyroidism Renal/ Medical History: Reports: Hx Kidney Stones. Denies: Hx Peritoneal Dialysis Musculoskeletal Medical History: Reports Hx Arthritis - gout, Reports Hx Gout Psychiatric Medical History: Reports: Hx Anxiety, Hx Depression, Hx Post Traumatic Stress Disorder Past Surgical History: Reports: Hx Orthopedic Surgery - Anterior cervical fusion, Hx Tonsillectomy - Immunizations Hx Diphtheria, Pertussis, Tetanus Vaccination: Yes Hx Pneumococcal Vaccination: 07/10/10 Review of Systems - Review of Systems Constitutional: See HPI EENT: See HPI Cardiovascular: No symptoms reported Respiratory: No symptoms reported Gastrointestinal: No symptoms reported Genitourinary: See HPI Musculoskeletal: See HPI Skin: No symptoms reported Neurological/Psychological: No symptoms reported Physical Exam - Vital signs Vitals: Temp Pulse Resp BP Pulse Ox 99.7 F 131 H 20 178/96 H 96 09/15/20 17:18 09/15/20 17:18 09/15/20 17:18 09/15/20 17:18 09/15/20 17:18 - Notes Notes: Vital signs reviewed, please refer to chart. Head is normocephalic, atraumatic. Pupils equal round, reactive to light. TMs are pearly wright with good light reflex bilaterally. Oral mucosa is moist. Pharynx is without erythema or exud ate. Neck is supple without meningismus. Heart is regular rate and rhythm. Lungs are clear to auscultation bilaterally. Abdomen is soft, nontender, normoactive bowel sounds throughout. No CVA tenderness noted. Extremities without cyanosis, clubbing. Posterior calves are nontender. Peripheral pulses are equal. Skin is warm and dry. Patient is awake, alert, neurological exam is nonfocal. Course - Re-evaluation Re-evalutation: 09/15/20 21:22 Patient presents emergency department for evaluation. He was initially seen thr [facility] triage and a septic work-up was begun. Laboratory investigations revealed a mildly elevated white count at 11.9 without any significant bandemia. Electrolytes unremarkable. His urinalysis shows leukocyte esterase and white blood cells on high-power field. Given this and his urinary symptoms, as well as the shaking chills, I do suspect this patient has a urinary tract infection. He is not vomiting. He is anxious to be discharged. His heart rate has improved somewhat with IV fluids. I will given further IV fluids. I looked through prior urinalyses in the past, and he did grow Enterococcus that was susceptible to Levaquin. He is given a dose of IV Levaquin here. I will send him home on Levaquin. I explained to the patient the concern in a male with urinary tract infection. I explained to him that I am concerned about the possibility of bacteremia, it would be very important that he take his antibiotic as directed and follow-up closely with his primary care provider on Thursday. He voiced understanding to this. We talked at length about precautions that should bring him back to the emergency department, including fever that lasts greater than 24 hours, vomiting, increased pain, dizziness, chest pain, or any other new symptoms. He voiced understanding. At this point I will given further fluids, Tylenol, IV Levaquin. The patient will be discharged with Levaquin and close follow-up. - Vital Signs Vital signs: Temp Pulse Resp BP Pulse Ox 99.2 F 95 19 162/97 H 95 09/15/20 23:23 09/15/20 23:23 09/15/20 23:23 09/15/20 23:23 09/15/20 23:23 - Laboratory Results Result Diagrams: 09/15/20 18:00 09/15/20 18:00 Laboratory Results Interpreted: 09/15/20 09/15/20 09/15/20 18:00 18:00 18:00 WBC 11.9 H RBC 5.90 H Hgb 17.6 H Hct 53.1 H RDW 15.3 H Absolute Neuts (auto) 8.9 H Est GFR (MDRD) Non-Af 56 L Glucose 143 H Calcium 10.3 H Alkaline Phosphatase 179 H Urine Protein 100 H Urine Urobilinogen 2.0 H Ur Leukocyte Esterase MODERATE H Critical Laboratory Results Reviewed: No Critical Results - Radiology Results Critical Radiology Results Reviewed: No Critical Results - EKG Interpretation by Me Additional EKG results interpreted by me: 09/15/20 21:57 Sinus tachycardia with a rate of 110 bpm. Normal axis. Right bundle branch block. No ST elevation concerning for infarction, no change from prior study. Discharge - Discharge Clinical Impression: Fever Qualifiers: Encounter type: initial encounter Urinary tract infection Qualifiers: Urinary tract infection type: site unspecified Hematuria presence: without hematuria Qualified Code(s): N39.0 - Urinary tract infection, site not specified Condition: Stable Disposition: HOME, SELF-CARE Instructions: Fever ([facility]), Urinary Tract Infection ([facility]) Additional Instructions: Your findings today are consistent with a urinary tract infection. You have been given a dose of IV antibiotics. Please fill the oral antibiotics and take them as directed, starting on Thursday. Stay hydrated. Follow-up with your primary care provider on Thursday. Urine cultures and blood cultures are pending. If bacteria grow, they will be checked against the antibiotic you have been started on. You will be contacted if this antibiotic needs to be changed. If you maintain a fever greater than 24 hours from now, vomiting, increased pain, dizziness, or any other new or concerning symptoms, please return immediately to the emergency department for reevaluation. Prescriptions: Levofloxacin [Levaquin 500 mg Tablet] 500 mg PO DAILY #9 tablet Referrals: ANA TILLEY MD [Primary Care Provider] - Follow up as needed
[2020-09-15 23:27] VITALS: BP 162/97
--- NOTE | 2020-09-16 12:23 | EKG REPORT ---
SEVERITY:- ABNORMAL ECG - SINUS TACHYCARDIA RIGHT BUNDLE BRANCH BLOCK : Confirmed by: Janet Moreno MD 16-Sep-2020 12:22:34
== END 2020-09-15 23:26 | disposition home or self-care (01) ==
LOC: ER 17:10
DX: N39.0 Urinary tract infection, site not specified (principal); R50.9 Fever, unspecified; M54.9 Dorsalgia, unspecified; M54.2 Cervicalgia; H92.02 Otalgia, left ear; Z79.899 Other long term (current) drug therapy; F17.200 Nicotine dependence, unspecified, uncomplicated; J45.909 Unspecified asthma, uncomplicated; E11.9 Type 2 diabetes mellitus without complications
CPT/HCPCS: 93005; 99285; 96361; 96365; 36415; 87040; 87086; 83605; 85025; 80053; 81001; 84484; 71045; 93010; A9270; J1956; J7030